=== PATIENT | female | born 1975 | race Caucasian/White ===

== ENCOUNTER 2016-10-04 01:45 | Emergency (ER) | payer MEDICAID ==
[~2016-10-04] VITALS: Ht 162.6 cm; Wt 95.0 kg
[~2016-10-04 01:45] MED LIST: ALBU18HF INH; LEVE500T38 PO; NAPR500T3 PO; NORT10CA PO; POTA10TA11 PO; POTA10TA31 PO; TIOT18CA INH; TOPI200T6 PO
[2016-10-04] MEDS ORDERED: LORazepam 2 MG/ML, 1ML IVPush ONE (03:30)
[2016-10-04] MEDS ORDERED: SODIUM CHLORIDE FLUSH 10ML SYR IVF ONE (03:30)
[2016-10-04 04:11] LABS: HEMOGLOBIN 11.3 g/dL (11.7-16.4)
[2016-10-04 04:27] LABS: BLOOD UREA NITROGEN 5 mg/dL (7-18)
[2016-10-04 04:33] LABS: ASPARTATE AMINO TRANSFERASE 25 U/L (15-37)
[2016-10-04 04:35] LABS: ACETAMINOPHEN < 2 mcg/mL (10-30); IS PT STATUS REG ER OR PRE ER? YES
[2016-10-04 04:46] LABS: DIFF TOTAL CELLS COUNTED 100 CELL DIFF
[2016-10-04 04:47] LABS: VERIFY COUNTS? YES
[2016-10-04 04:48] LABS: ANISOCYTOSIS 1+; HYPOCHROMIA 1+; OVALOCYTES 1+; POIKILOCYTOSIS 1+
[2016-10-04 04:49] LABS: PATH.CAST-FLAG NOT PRESENT; SPERM-FLAG NOT PRESENT; SRC-FLAG NOT PRESENT; XTAL-FLAG NOT PRESENT; YLC-FLAG NOT PRESENT
[2016-10-04] MEDS ORDERED: LEVOFLOXACIN/PMX 750MG/150ML 150 ML IV ONE (05:00)
[2016-10-04] MEDS ORDERED: LEVOFLOXACIN/PMX 750MG/150ML 150 ML ONE (05:05)
[2016-10-04 06:45] VITALS: BP 131/74
== END 2016-10-04 06:48 | disposition home or self-care (01) ==
LOC: ED 06:45
DX: J15.9 Unspecified bacterial pneumonia (principal); G40.909 Epilepsy, unspecified, not intractable, without status epilepticus
CPT/HCPCS: 36415; 70450; 71010; 80053; 80307; 80329; 81001; 84484; 85025; 85610; 85730; 87086; 93005; 96365; 96366; 99285; J1956; 87147; G0480

== ENCOUNTER 2016-10-10 22:30 | Inpatient (IN) | payer MEDICAID ==
[~2016-10-10] VITALS: Ht 162.6 cm; Wt 102.0 kg
[2016-10-10 23:13] LABS: HEMOGLOBIN 12.4 g/dL (11.7-16.4)
[2016-10-10 23:19] LABS: DAU SCREEN DISCLAIMER
[2016-10-10 23:22] LABS: BLOOD UREA NITROGEN 5 mg/dL (7-18)
[2016-10-10 23:31] LABS: ACETAMINOPHEN < 2 mcg/mL (10-30)
[2016-10-10] MEDS ORDERED: LORazepam 2 MG/ML, 1ML ONE (23:48)
[2016-10-11] MEDS ORDERED: LORazepam 2 MG/ML, 1ML IVPush ONE
[2016-10-11] MEDS ORDERED: SERT50TA PO (02:32)
[2016-10-11] MEDS ORDERED: DOCUSATE 100 MG CAPSULE PO PRN (04:00)
[2016-10-11] MEDS ORDERED: BISACODYL 10 MG SUPP PR PRN (04:00)
[2016-10-11] MEDS ORDERED: POTASSIUM CHLORIDE 20 MEQ TAB.ER.PRT PO ONE (04:00)
[2016-10-11] MEDS ORDERED: ONDANSETRON ODT 4 MG PO PRN (04:00)
[2016-10-11] MEDS ORDERED: ALBUTEROL SULFATE 2.5 MG/3 ML HHN PRN (04:00)
[2016-10-11] MEDS ORDERED: POLYETHYLENE GLYCOL 17 GM PACKET PO PRN (04:00)
[2016-10-11] MEDS ORDERED: ACETAMINOPHEN 325 MG TABLET PO PRN (04:00)
[2016-10-11] MEDS ORDERED: POTASSIUM CHLORIDE 20 MEQ TAB.ER.PRT ONE (05:38)
[2016-10-11] MEDS ORDERED: NORTRIPTYLINE MC SCH (09:30)
[2016-10-11] MEDS ORDERED: IPRATROPIUM 0.5 MG/2.5 ML INHA HHN PRN (09:30)
[2016-10-11 09:33] VITALS: BP 92/52
[2016-10-11] MEDS: SERTRALINE 50MG TABLET PO SCH (10:19)
[2016-10-11] MEDS: THIAMINE 100MG TABLET PO SCH (10:19)
[2016-10-11] MEDS: TOPIRAMATE 100 MG TABLET PO SCH ×2 (10:20→20:29)
[2016-10-11] MEDS: FOLIC ACID 1 MG TABLET PO SCH (10:20)
[2016-10-11] MEDS ORDERED: NARATRIPTAN HOMEMEDPO PRN (11:30)
[2016-10-11] MEDS: LORazepam 2 MG/ML, 1ML IVPush PRN ×3 (12:22→23:48)
[2016-10-11] MEDS ORDERED: LEVETIRACETAM 1,000 MG in SODIUM CHLORIDE 0.9% 100 ML IV SCH (14:00)
[2016-10-11] MEDS: CEFTRIAXONE PMX 1GM/50ML 50 ML IV SCH (14:40)
[2016-10-11] MEDS ORDERED: GADOBUTROL 10 MMOL/10 ML PFS ONE (14:53)
[2016-10-11 15:56] VITALS: BP 97/57
[2016-10-11] MEDS: DOXYCYCLINE 100 MG in DEXTROSE 5% 250 ML IV SCH (17:13)
[2016-10-11 19:13] VITALS: BP 89/55
[2016-10-11 19:13] LABS: PATH.CAST-FLAG NOT PRESENT; SPERM-FLAG NOT PRESENT; SRC-FLAG NOT PRESENT; XTAL-FLAG NOT PRESENT; YLC-FLAG NOT PRESENT
[2016-10-11] MEDS: LEVETIRACETAM 2000 MG HOMEMEDPO SCH (20:30)
[2016-10-12 02:28] VITALS: BP 122/82
[2016-10-12] MEDS: LORazepam 2 MG/ML, 1ML IVPush PRN ×2 (02:32→22:44)
[2016-10-12] MEDS: CEFTRIAXONE PMX 1GM/50ML 50 ML IV SCH ×2 (02:48→15:32)
[2016-10-12] MEDS: DOXYCYCLINE 100 MG in DEXTROSE 5% 250 ML IV SCH ×2 (04:09→17:05)
[2016-10-12 05:45] LABS: HEMOGLOBIN 10.8 g/dL (11.7-16.4)
[2016-10-12 05:52] LABS: ASPARTATE AMINO TRANSFERASE 7 U/L (15-37); BLOOD UREA NITROGEN 10 mg/dL (7-18)
[2016-10-12 07:05] VITALS: BP 110/73
[2016-10-12] MEDS: FOLIC ACID 1 MG TABLET PO SCH (09:50)
[2016-10-12] MEDS: THIAMINE 100MG TABLET PO SCH (09:50)
[2016-10-12] MEDS: SERTRALINE 50MG TABLET PO SCH (09:50)
[2016-10-12] MEDS: LEVETIRACETAM 2000 MG HOMEMEDPO SCH ×2 (09:52→20:48)
[2016-10-12] MEDS: TOPIRAMATE 100 MG TABLET PO SCH ×2 (09:52→20:47)
[2016-10-12] MEDS: NAPROXEN 500 MG TABLET PO PRN ×2 (12:54→20:48)
[2016-10-12 13:40] VITALS: BP 96/53
[2016-10-12 19:40] VITALS: BP 88/56
[2016-10-12 21:18] VITALS: BP 106/65
[2016-10-13 02:43] VITALS: BP 85/54
[2016-10-13] MEDS: CEFTRIAXONE PMX 1GM/50ML 50 ML IV SCH (03:02)
[2016-10-13 04:32] VITALS: BP 97/61
[2016-10-13] MEDS: DOXYCYCLINE 100 MG in DEXTROSE 5% 250 ML IV SCH (04:35)
[2016-10-13 07:27] VITALS: BP 100/68
[2016-10-13] MEDS ORDERED: NORTRIPTYLINE 10 MG CAPSULE PO SCH (09:00)
[2016-10-13] MEDS: TOPIRAMATE 100 MG TABLET PO SCH (09:38)
[2016-10-13] MEDS: FOLIC ACID 1 MG TABLET PO SCH (09:38)
[2016-10-13] MEDS: SERTRALINE 50MG TABLET PO SCH (09:39)
[2016-10-13] MEDS: THIAMINE 100MG TABLET PO SCH (09:39)
[2016-10-13] MEDS: LEVETIRACETAM 2000 MG HOMEMEDPO SCH (09:40)
[2016-10-13] MEDS: NAPROXEN 500 MG TABLET PO PRN (13:22)
[2016-10-13 13:45] VITALS: BP 97/62
[2016-10-13] MEDS ORDERED: LEVETIRACETAM HOMEMEDPO (14:40)
== END 2016-10-13 17:47 | disposition home or self-care (01) | DRG 871 ==
LOC: ED 23:59 → EDIP 10-11 02:59 → 3NE 10-11 09:05 → OBSVTOIN 10-11 16:32
PROVIDERS: ADMIT Internal Medicine; ATTEND Internal Medicine
PROC: 0T9B70Z Drainage of Bladder with Drainage Device, Via Natural or Artificial Opening (ICD-10-PCS; principal; 2016-10-11)
DX: A41.9 Sepsis, unspecified organism (principal); J18.9 Pneumonia, unspecified organism; E43 Unspecified severe protein-calorie malnutrition; R45.851 Suicidal ideations; N39.0 Urinary tract infection, site not specified; E87.1 Hypo-osmolality and hyponatremia; J44.0 Chronic obstructive pulmonary disease with (acute) lower respiratory infection; J44.9 Chronic obstructive pulmonary disease, unspecified; J45.909 Unspecified asthma, uncomplicated; G35 Multiple sclerosis; M41.9 Scoliosis, unspecified; M19.90 Unspecified osteoarthritis, unspecified site; F17.210 Nicotine dependence, cigarettes, uncomplicated; D47.3 Essential (hemorrhagic) thrombocythemia; D64.9 Anemia, unspecified; E87.6 Hypokalemia; G40.909 Epilepsy, unspecified, not intractable, without status epilepticus; B95.4 Other streptococcus as the cause of diseases classified elsewhere; Z68.38 Body mass index [BMI] 38.0-38.9, adult; Z98.51 Tubal ligation status; Z90.49 Acquired absence of other specified parts of digestive tract; Z90.721 Acquired absence of ovaries, unilateral; Z98.890 Other specified postprocedural states; Z88.8 Allergy status to other drugs, medicaments and biological substances; Z91.048 Other nonmedicinal substance allergy status; Z80.9 Family history of malignant neoplasm, unspecified; Z71.6 Tobacco abuse counseling
CPT/HCPCS: 36415; 70553; 71010; 80048; 80053; 80307; 80329; 81001; 82040; 82962; 83735; 84100; 84703; 85025; 87086; 93005; 95816; 99285; A9585; G0378; J0696; J7060; G0480; J2060

== ENCOUNTER 2019-08-03 16:31 | Emergency (ER) | payer MEDICAID ==
[~2019-08-03] VITALS: Ht 162.6 cm; Wt 81.8 kg
[~2019-08-03 16:31] MED LIST changes: -LEVE500T38 PO; +LEVE500T54 PO; +LEVETIRACETAM HOMEMEDPO; +NAPR-685 PO; -NAPR500T3 PO; +SERT50TA PO
--- NOTE | 2019-08-03 18:10 | NUR ---
PT TO ROOM FROM LOBBY
[2019-08-03] MEDS ORDERED: CYCLOBENZAPRINE 10 MG TABLET ONE (18:52)
[2019-08-03] MEDS ORDERED: CYCLOBENZAPRINE 10 MG TABLET PO ONE (19:00)
[2019-08-03 19:10] VITALS: BP 115/67
--- NOTE | 2019-08-03 20:07 | NUR ---
Patient given discharge instructions and Rx, they have confirmed that they understand the instructions. Patient ambulatory with steady gait.
== END 2019-08-03 20:08 | disposition home or self-care (01) ==
LOC: ED 20:01
DX: J20.8 Acute bronchitis due to other specified organisms (principal); G89.29 Other chronic pain; M54.5 Low back pain; Z76.0 Encounter for issue of repeat prescription; F17.210 Nicotine dependence, cigarettes, uncomplicated; J44.9 Chronic obstructive pulmonary disease, unspecified; Z88.8 Allergy status to other drugs, medicaments and biological substances; Z79.899 Other long term (current) drug therapy
CPT/HCPCS: 71046; 99283

== ENCOUNTER 2019-09-23 21:18 | Emergency (ER) | payer MEDICAID ==
[~2019-09-23] VITALS: Ht 162.6 cm; Wt 82.0 kg
[2019-09-23 21:27] VITALS: BP 125/86
--- NOTE | 2019-09-23 21:30 | NUR ---
PT BIB BY DIO. SHE CALLED 911 BECAUSE SHE THINKS SHE IS GOING TO HAVE A SEIZURE SOON. SHE SAYS "BEFORE I GET ONE I GET A NUMB FEELING AND MY FACE FEELS FUNNY. I FEEL THESE THINGS NOW". PT HASNT BEEN TAKING HER SZ MEDS SINCE JULY. SAYS HER LAST SZ WAS 3 DAYS AGO. ALSO SAYS SHE DRANK 3 32OZ BEERS TODAY. SZ PRECAUTIONS IN PLACE. BLANKET PROVIDED
--- NOTE | 2019-09-23 21:59 | NUR ---
FINGER STICK BLOOD GLUCOSE LEVEL 88
--- NOTE | 2019-09-23 22:08 | NUR ---
PT AMBULATED TO BATHROOM
[2019-09-23 22:17] LABS: BASOPHILS # (AUTO) 0.02 x10^3/uL (0-0.1); BASOPHILS % (AUTO) 0 % (0-1); EOSINOPHILS # (AUTO) 0.23 x10^3/uL (0-0.4); EOSINOPHILS % (AUTO) 3 % (1-7); LYMPHOCYTES # (AUTO) 1.88 x10^3/uL (1-3.4); LYMPHOCYTES % (AUTO) 27 % (22-44); MD NO; MEAN CORPUSCULAR HGB CONC 33.3 g/dL (32.4-35.8); MEAN PLATELET VOLUME 7.7 fL (7.4-10.4); MONOCYTES % (AUTO) 4 % (2-9); NEUTROPHILS # (AUTO) 4.53 x10^3/uL (1.8-6.8); NEUTROPHILS % (AUTO) 65 % (42-75); PLATELET COUNT 261 x10^3/uL (130-400); RED BLOOD COUNT 4.66 x10^6/uL (3.82-5.3)
[2019-09-23 22:25] LABS: ALBUMIN 3.8 g/dL (3.4-5.0); ANION GAP 7 mmol/L (5-15); CHLORIDE 112 mmol/L (98-107)
[2019-09-23 22:29] LABS: ALANINE AMINOTRANSFERASE 33 U/L (12-78); ALKALINE PHOSPHATASE 72 U/L (45-117); BILIRUBIN,TOTAL 0.2 mg/dL (0.2-1.0); CREATININE 0.72 mg/dL (0.55-1.02); TOTAL PROTEIN 7.2 g/dL (6.4-8.2)
--- NOTE | 2019-09-23 23:20 | NUR ---
PT ESCORTED OUT. PT AMBULATED WITH A STEADY GAIT. GIVEN TAXI VOUCHER
== END 2019-09-23 23:21 | disposition home or self-care (01) ==
LOC: ED 23:00
DX: F10.10 Alcohol abuse, uncomplicated (principal); F17.200 Nicotine dependence, unspecified, uncomplicated; G40.909 Epilepsy, unspecified, not intractable, without status epilepticus; Y90.0 Blood alcohol level of less than 20 mg/100 ml
CPT/HCPCS: 80053; 80307; 82962; 85025; 93005; 99284

== ENCOUNTER 2020-02-27 11:52 | Emergency (ER) | payer MEDICAID ==
[~2020-02-27] VITALS: Ht 162.6 cm; Wt 74.4 kg
--- NOTE | 2020-02-27 12:27 | NUR ---
TASK RN: PT REPORTS MIGRAINE ALEXIS X2 DAYS +N/V/D. PLACED VITAL SIGNS MONITORS, AND CALL LIGTH WITHIN REACH.
[2020-02-27] MEDS ORDERED: OXCA300T19 PO (12:30)
[2020-02-27] MEDS ORDERED: KETOROLAC 30 MG/1 ML IVPush ONE (12:30)
[2020-02-27] MEDS ORDERED: ONDANSETRON 2MG/ML, 2ML IVPush ONE (12:30)
[2020-02-27] MEDS ORDERED: SODIUM CHLORIDE 0.9% 1,000ML IVBOLUS ONE (12:30)
[2020-02-27] MEDS ORDERED: ONDANSETRON 2MG/ML, 2ML ONE (12:38)
[2020-02-27] MEDS ORDERED: KETOROLAC 30 MG/1 ML ONE (12:38)
--- NOTE | 2020-02-27 12:46 | NUR ---
ISOLATION CART PLACED.
[2020-02-27 12:54] LABS: BASOPHILS % (AUTO) 0 % (0-1); EOSINOPHILS # (AUTO) 0.01 x10^3/uL (0-0.4); EOSINOPHILS % (AUTO) 0 % (1-7); LYMPHOCYTES % (AUTO) 4 % (22-44); MD NO; MEAN CORPUSCULAR HEMOGLOBIN 32.5 pg (27.0-34.8); MEAN CORPUSCULAR HGB CONC 33.5 g/dL (32.4-35.8); MEAN PLATELET VOLUME 7.5 fL (7.4-10.4); MONOCYTES # (AUTO) 0.37 x10^3/uL (0.2-0.8); MONOCYTES % (AUTO) 5 % (2-9); NEUTROPHILS # (AUTO) 6.34 x10^3/uL (1.8-6.8); NEUTROPHILS % (AUTO) 90 % (42-75); PLATELET COUNT 146 x10^3/uL (130-400); RED BLOOD COUNT 4.34 x10^6/uL (3.82-5.3); RED CELL DISTRIBUTION WIDTH 13.3 % (9.6-15.2)
[2020-02-27 13:04] LABS: ALBUMIN 3.3 g/dL (3.4-5.0); ANION GAP 6 mmol/L (5-15); CALCIUM 8.6 mg/dL (8.5-10.1); CHLORIDE 106 mmol/L (98-107); CREATININE 0.81 mg/dL (0.55-1.02)
--- NOTE | 2020-02-27 13:16 | NUR ---
REPORT TAKEN FROM SANDRA SHULTZ ATTEMPTED X 2 BY TASK RN WITHOUT SUCCESS. SAFIA TSANG NOTIFIED. IV MEDS CHANGED TO ALTERNATIVE ROUTES, PER MD NO IV NEEDED.
[2020-02-27] MEDS ORDERED: ONDANSETRON ODT 4 MG ONE (13:18)
[2020-02-27] MEDS ORDERED: ONDANSETRON ODT 4 MG PO ONE (14:00)
[2020-02-27] MEDS ORDERED: KETOROLAC 30 MG/1 ML IM ONE (14:00)
[2020-02-27] MEDS ORDERED: HYDROcodone/APAP 5/325 TABLET PO ONE (14:00)
--- NOTE | 2020-02-27 14:00 | NUR ---
verbal order received from RIYA Rasmussen to change toradol order from IV to IM route, 30 mg. Zofran order changed from IV route to ODT, 4mg. NS bolus order cancelled. pt medicated per emar, tolerated well.
[2020-02-27] MEDS ORDERED: HYDROcodone/APAP 5/325 TABLET ONE (14:08)
[2020-02-27 14:11] VITALS: BP 101/58
--- NOTE | 2020-02-27 14:18 | NUR ---
pt medicated per emar, tolearted well. no n/v. pt is a&ox4, resps even and unlabored, neuro intact. nsr on secured entrance monitor with no ectopy noted. pt to be discharged.
== END 2020-02-27 14:20 | disposition home or self-care (01) ==
LOC: ED 13:08
DX: J44.1 Chronic obstructive pulmonary disease with (acute) exacerbation (principal); Z20.828 Contact with and (suspected) exposure to other viral communicable diseases; G43.709 Chronic migraine without aura, not intractable, without status migrainosus; B34.9 Viral infection, unspecified; R11.2 Nausea with vomiting, unspecified; I51.7 Cardiomegaly; R00.0 Tachycardia, unspecified; F17.210 Nicotine dependence, cigarettes, uncomplicated
CPT/HCPCS: 36415; 71045; 80048; 82040; 83605; 85025; 87635; 93005; 96372; 99285; J1885; Q0162

== ENCOUNTER 2020-04-01 10:13 | Inpatient (IN) | payer MEDICAID ==
[~2020-04-01] VITALS: Ht 162.6 cm; Wt 93.7 kg
[~2020-04-01 10:13] MED LIST changes: +OXCA300T19 PO
[2020-04-01] MEDS ORDERED: ACETAMINOPHEN 500 MG TABLET ONE (10:44)
[2020-04-01] MEDS ORDERED: ACETAMINOPHEN 500 MG TABLET PO ONE (11:00)
[2020-04-01 11:40] LABS: ANION GAP 6 mmol/L (5-15); CALCIUM 8.4 mg/dL (8.5-10.1); CHLORIDE 118 mmol/L (98-107); CREATININE 0.59 mg/dL (0.55-1.02)
[2020-04-01 12:52] LABS: BASOPHILS # (AUTO) 0.03 x10^3/uL (0-0.1); BASOPHILS % (AUTO) 0 % (0-1); EOSINOPHILS # (AUTO) 0.15 x10^3/uL (0-0.4); EOSINOPHILS % (AUTO) 2 % (1-7); LYMPHOCYTES # (AUTO) 1.46 x10^3/uL (1-3.4); LYMPHOCYTES % (AUTO) 15 % (22-44); MD NO; MEAN CORPUSCULAR HEMOGLOBIN 32.4 pg (27.0-34.8); MEAN CORPUSCULAR HGB CONC 33.1 g/dL (32.4-35.8); MEAN CORPUSCULAR VOLUME 97.7 fL (80-100); MEAN PLATELET VOLUME 7.4 fL (7.4-10.4); MONOCYTES # (AUTO) 0.28 x10^3/uL (0.2-0.8); MONOCYTES % (AUTO) 3 % (2-9); NEUTROPHILS # (AUTO) 7.73 x10^3/uL (1.8-6.8); NEUTROPHILS % (AUTO) 80 % (42-75); PLATELET COUNT 317 x10^3/uL (130-400); RED BLOOD COUNT 4.51 x10^6/uL (3.82-5.3); RED CELL DISTRIBUTION WIDTH 14.1 % (9.6-15.2)
[2020-04-01 12:53] LABS: INTERNATIONAL NORMALIZED RATIO 1.03 (0.93-1.1); PROTHROMBIN TIME 10.6 Seconds (9.6-11.5)
--- NOTE | 2020-04-01 13:30 | NUR ---
MULTIPLE ATTMEPTS AT IV WITH NO SUCCESS. PROVIDER NOTIFIED.
[2020-04-01] MEDS ORDERED: NAPROXEN 500 MG TABLET PO PRN (15:30)
[2020-04-01] MEDS ORDERED: ACETAMINOPHEN 325 MG TABLET PO PRN (15:30)
[2020-04-01] MEDS ORDERED: BISACODYL 10 MG SUPP PR PRN (15:30)
[2020-04-01] MEDS ORDERED: NORTRIPTYLINE 10 MG CAPSULE PO PRN (15:30)
[2020-04-01] MEDS ORDERED: ALBUTEROL HFA 90 MCG/SPRAY INH PRN (15:30)
[2020-04-01] MEDS ORDERED: POLYETHYLENE GLYCOL 17 GM PACKET PO PRN (15:30)
[2020-04-01] MEDS ORDERED: ONDANSETRON 2MG/ML, 2ML IVPush PRN (15:30)
[2020-04-01] MEDS ORDERED: DOCUSATE 100 MG CAPSULE PO PRN (15:30)
[2020-04-01] MEDS: SODIUM CHLORIDE 0.9% 1,000 ML IV SCH (17:38)
[2020-04-01 19:50] VITALS: BP 144/83
[2020-04-01] MEDS: TOPIRAMATE 100 MG TABLET PO SCH (20:02)
[2020-04-01] MEDS: morphine SULFATE 10 MG/ML, 1ML IVPush PRN ×2 (20:02→20:30)
[2020-04-01] MEDS: KETOROLAC 30 MG/1 ML IV PRN (20:02)
[2020-04-01] MEDS: POTASSIUM CHLORIDE 10 MEQ TABLET.ER PO SCH (20:02)
[2020-04-01] MEDS: OXCARBAZEPINE 300MG TABLET PO SCH (20:03)
[2020-04-01] MEDS: HYDROcodone/APAP 5/325 TABLET PO PRN (21:44)
[2020-04-02 01:38] VITALS: BP 119/81
[2020-04-02] MEDS: morphine SULFATE 10 MG/ML, 1ML IVPush PRN ×3 (01:46→09:48)
[2020-04-02] MEDS: KETOROLAC 30 MG/1 ML IV PRN ×2 (06:06→19:27)
[2020-04-02] MEDS: SODIUM CHLORIDE 0.9% 1,000 ML IV SCH ×2 (06:06→23:29)
[2020-04-02 06:42] LABS: BASOPHILS # (AUTO) 0.03 x10^3/uL (0-0.1); BASOPHILS % (AUTO) 1 % (0-1); EOSINOPHILS # (AUTO) 0.16 x10^3/uL (0-0.4); EOSINOPHILS % (AUTO) 3 % (1-7); LYMPHOCYTES % (AUTO) 38 % (22-44); MD NO; MEAN CORPUSCULAR HEMOGLOBIN 32.3 pg (27.0-34.8); MEAN CORPUSCULAR HGB CONC 33.1 g/dL (32.4-35.8); MEAN CORPUSCULAR VOLUME 97.4 fL (80-100); MEAN PLATELET VOLUME 7.2 fL (7.4-10.4); MONOCYTES # (AUTO) 0.28 x10^3/uL (0.2-0.8); MONOCYTES % (AUTO) 6 % (2-9); NEUTROPHILS # (AUTO) 2.48 x10^3/uL (1.8-6.8); NEUTROPHILS % (AUTO) 52 % (42-75); PLATELET COUNT 246 x10^3/uL (130-400); RED BLOOD COUNT 3.97 x10^6/uL (3.82-5.3); RED CELL DISTRIBUTION WIDTH 14.1 % (9.6-15.2)
[2020-04-02 06:51] LABS: ALANINE AMINOTRANSFERASE 18 U/L (12-78); ALBUMIN 2.9 g/dL (3.4-5.0); ANION GAP 7 mmol/L (5-15); CALCIUM 7.7 mg/dL (8.5-10.1); CHLORIDE 117 mmol/L (98-107); CREATININE 0.65 mg/dL (0.55-1.02)
[2020-04-02 07:01] LABS: ALKALINE PHOSPHATASE 61 U/L (45-117); BILIRUBIN,TOTAL 0.3 mg/dL (0.2-1.0); TOTAL PROTEIN 5.6 g/dL (6.4-8.2)
[2020-04-02 07:06] VITALS: BP 99/62
[2020-04-02] MEDS: SERTRALINE 50MG TABLET PO SCH (09:15)
[2020-04-02] MEDS: OXCARBAZEPINE 300MG TABLET PO SCH ×2 (09:16→20:55)
[2020-04-02] MEDS: TOPIRAMATE 100 MG TABLET PO SCH ×2 (09:16→20:55)
[2020-04-02] MEDS: POTASSIUM CHLORIDE 10 MEQ TABLET.ER PO SCH ×2 (09:16→20:55)
[2020-04-02 10:05] VITALS: BP 113/76
[2020-04-02] MEDS: TIOTROPIUM BROMIDE 18 MCG/INH INH SCH (10:31)
[2020-04-02] MEDS: HYDROcodone/APAP 5/325 TABLET PO PRN ×3 (10:37→23:29)
[2020-04-02] MEDS ORDERED: CHLORHEXIDINE 15 ML UDC MM ONE (12:30)
[2020-04-02] MEDS ORDERED: MIDAZOLAM 1 MG/ML, 2ML ONE (12:46)
[2020-04-02] MEDS ORDERED: FENTANYL PF 250 MCG/5ML ONE (12:47)
[2020-04-02 12:54] VITALS: BP 105/71
[2020-04-02] MEDS ORDERED: MUPIROCIN OINT 2%, 22GM ONE (13:22)
[2020-04-02] MEDS ORDERED: LIDOCAINE 1%-EPI 1:100K, 20ML ONE (13:22)
[2020-04-02] MEDS ORDERED: BALANCED SALT OPHTH IRRIG SOLN 18ML ONE (13:22)
[2020-04-02] MEDS ORDERED: FENTANYL PF 100 MCG/2ML IV PRN (14:00)
[2020-04-02] MEDS ORDERED: OXYcodone 5 MG/5 ML ORAL.SOL UDC PO PRN (14:00)
[2020-04-02] MEDS ORDERED: ACETAMINOPHEN 325 MG TABLET PO PRN (14:00)
[2020-04-02] MEDS ORDERED: MEPERIDINE/PF 25MG/0.5ML IVPush PRN (14:00)
[2020-04-02] MEDS ORDERED: ONDANSETRON 2MG/ML, 2ML IVPush PRN (14:00)
[2020-04-02] MEDS ORDERED: DIAZEPAM 5 MG/ML, 2ML IVPush PRN (14:00)
[2020-04-02] MEDS ORDERED: DIPHENHYDRAMINE 50 MG/ML, 1ML IVPush PRN (14:00)
[2020-04-02] MEDS ORDERED: PROMETHAZINE 25 MG/ML, 1ML IVPush PRN (14:00)
[2020-04-02] MEDS ORDERED: LIDOCAINE 1%-EPI 1:100K, 20ML INFIL ONE (14:09)
[2020-04-02] MEDS ORDERED: HYDROmorphone 1 MG/ML, 1ML INJ ONE (15:06)
[2020-04-02] MEDS: HYDROmorphone 1 MG/ML, 1ML INJ IVPush PRN ×2 (15:08→15:15)
[2020-04-02 19:18] VITALS: BP 104/64
[2020-04-02] MEDS: CEFAZOLIN PMX 1GM/50ML 50 ML IV SCH (21:20)
[2020-04-02 23:35] VITALS: BP 103/57
[2020-04-03 03:27] VITALS: BP 103/64
[2020-04-03] MEDS: HYDROcodone/APAP 5/325 TABLET PO PRN ×5 (03:36→22:06)
[2020-04-03] MEDS: CEFAZOLIN PMX 1GM/50ML 50 ML IV SCH (05:29)
[2020-04-03 05:38] LABS: BASOPHILS # (AUTO) 0.03 x10^3/uL (0-0.1); BASOPHILS % (AUTO) 1 % (0-1); EOSINOPHILS # (AUTO) 0.07 x10^3/uL (0-0.4); EOSINOPHILS % (AUTO) 1 % (1-7); LYMPHOCYTES # (AUTO) 1.34 x10^3/uL (1-3.4); LYMPHOCYTES % (AUTO) 20 % (22-44); MD NO; MEAN CORPUSCULAR HGB CONC 33.9 g/dL (32.4-35.8); MEAN CORPUSCULAR VOLUME 97.4 fL (80-100); MEAN PLATELET VOLUME 7.3 fL (7.4-10.4); MONOCYTES % (AUTO) 6 % (2-9); NEUTROPHILS # (AUTO) 5.01 x10^3/uL (1.8-6.8); NEUTROPHILS % (AUTO) 73 % (42-75); PLATELET COUNT 242 x10^3/uL (130-400); RED BLOOD COUNT 3.71 x10^6/uL (3.82-5.3); RED CELL DISTRIBUTION WIDTH 14.1 % (9.6-15.2)
[2020-04-03 05:40] LABS: ANION GAP 7 mmol/L (5-15); CALCIUM 8.2 mg/dL (8.5-10.1); CHLORIDE 117 mmol/L (98-107)
[2020-04-03 05:42] LABS: CREATININE 0.69 mg/dL (0.55-1.02)
[2020-04-03 07:29] VITALS: BP 111/66
[2020-04-03] MEDS: POTASSIUM CHLORIDE 10 MEQ TABLET.ER PO SCH ×2 (08:32→21:18)
[2020-04-03] MEDS: TIOTROPIUM BROMIDE 18 MCG/INH INH SCH (08:32)
[2020-04-03] MEDS: OXCARBAZEPINE 300MG TABLET PO SCH ×2 (08:32→21:18)
[2020-04-03] MEDS: TOPIRAMATE 100 MG TABLET PO SCH ×2 (08:32→21:18)
[2020-04-03] MEDS: SERTRALINE 50MG TABLET PO SCH (08:32)
[2020-04-03] MEDS: KETOROLAC 30 MG/1 ML IV PRN ×3 (08:42→22:05)
[2020-04-03] MEDS: SODIUM CHLORIDE 0.9% 1,000 ML IV SCH (08:58)
[2020-04-03] MEDS: AMOXICILLIN/CLAV 875-125MG TABLET PO SCH ×2 (09:08→21:18)
[2020-04-03 13:25] VITALS: BP 105/70
[2020-04-03 19:02] VITALS: BP 125/79
[2020-04-04] MEDS: SODIUM CHLORIDE 0.9% 1,000 ML IV SCH ×2 (02:10→09:19)
[2020-04-04 03:51] VITALS: BP 113/66
[2020-04-04 04:49] LABS: BASOPHILS # (AUTO) 0.05 x10^3/uL (0-0.1); BASOPHILS % (AUTO) 1 % (0-1); EOSINOPHILS # (AUTO) 0.19 x10^3/uL (0-0.4); EOSINOPHILS % (AUTO) 4 % (1-7); LYMPHOCYTES % (AUTO) 30 % (22-44); MD NO; MEAN CORPUSCULAR HGB CONC 33.9 g/dL (32.4-35.8); MEAN CORPUSCULAR VOLUME 97.2 fL (80-100); MEAN PLATELET VOLUME 7.6 fL (7.4-10.4); MONOCYTES # (AUTO) 0.21 x10^3/uL (0.2-0.8); MONOCYTES % (AUTO) 4 % (2-9); NEUTROPHILS # (AUTO) 3.06 x10^3/uL (1.8-6.8); NEUTROPHILS % (AUTO) 61 % (42-75); PLATELET COUNT 230 x10^3/uL (130-400); RED BLOOD COUNT 3.58 x10^6/uL (3.82-5.3); RED CELL DISTRIBUTION WIDTH 14.1 % (9.6-15.2)
[2020-04-04 04:56] LABS: ANION GAP 5 mmol/L (5-15); CALCIUM 8.4 mg/dL (8.5-10.1); CHLORIDE 118 mmol/L (98-107); CREATININE 0.64 mg/dL (0.55-1.02)
[2020-04-04] MEDS: HYDROcodone/APAP 5/325 TABLET PO PRN ×4 (06:18→19:51)
[2020-04-04 09:15] VITALS: BP 118/72
[2020-04-04] MEDS: SERTRALINE 50MG TABLET PO SCH (09:17)
[2020-04-04] MEDS: OXCARBAZEPINE 300MG TABLET PO SCH ×2 (09:17→19:53)
[2020-04-04] MEDS: POTASSIUM CHLORIDE 10 MEQ TABLET.ER PO SCH ×2 (09:17→19:52)
[2020-04-04] MEDS: TIOTROPIUM BROMIDE 18 MCG/INH INH SCH (09:17)
[2020-04-04] MEDS: AMOXICILLIN/CLAV 875-125MG TABLET PO SCH ×2 (09:17→19:52)
[2020-04-04] MEDS: TOPIRAMATE 100 MG TABLET PO SCH ×2 (09:17→19:53)
[2020-04-04] MEDS: morphine SULFATE 10 MG/ML, 1ML IVPush PRN ×4 (12:24→23:14)
[2020-04-04 13:17] VITALS: BP 125/78
[2020-04-04 19:34] VITALS: BP 104/64
[2020-04-05 01:07] VITALS: BP 114/64
[2020-04-05] MEDS: HYDROcodone/APAP 5/325 TABLET PO PRN ×2 (01:11→08:29)
[2020-04-05] MEDS: morphine SULFATE 10 MG/ML, 1ML IVPush PRN ×5 (02:45→20:59)
[2020-04-05] MEDS: SODIUM CHLORIDE 0.9% 1,000 ML IV SCH ×2 (04:50→18:10)
[2020-04-05 07:36] VITALS: BP 135/90
[2020-04-05] MEDS: TOPIRAMATE 100 MG TABLET PO SCH ×2 (08:25→20:58)
[2020-04-05] MEDS: POTASSIUM CHLORIDE 10 MEQ TABLET.ER PO SCH ×2 (08:25→20:58)
[2020-04-05] MEDS: SERTRALINE 50MG TABLET PO SCH (08:25)
[2020-04-05] MEDS: AMOXICILLIN/CLAV 875-125MG TABLET PO SCH ×2 (08:25→20:58)
[2020-04-05] MEDS: OXCARBAZEPINE 300MG TABLET PO SCH ×2 (08:25→20:58)
[2020-04-05] MEDS: KETOROLAC 30 MG/1 ML IV PRN ×2 (08:26→16:28)
[2020-04-05] MEDS: TIOTROPIUM BROMIDE 18 MCG/INH INH SCH (08:36)
[2020-04-05] MEDS ORDERED: CHLORHEXIDINE 15 ML UDC ONE (09:57)
[2020-04-05] MEDS ORDERED: BALANCED SALT OPHTH IRRIG SOLN 18ML ONE (10:43)
[2020-04-05] MEDS ORDERED: MUPIROCIN OINT 2%, 22GM ONE (10:44)
[2020-04-05] MEDS ORDERED: LIDOCAINE 1%-EPI 1:100K, 20ML ONE (10:44)
[2020-04-05] MEDS ORDERED: CHLORHEXIDINE 15 ML UDC MM ONE (11:00)
[2020-04-05] MEDS ORDERED: PROPOFOL 10 MG/ML, 20ML ONE (11:01)
[2020-04-05] MEDS ORDERED: SUCCINYLCHOLINE 20 MG/ML, 10ML ONE (11:01)
[2020-04-05] MEDS ORDERED: FENTANYL PF 100 MCG/2ML ONE (11:01)
[2020-04-05] MEDS ORDERED: LIDOCAINE-MPF 2% ,5ML ONE (11:01)
[2020-04-05] MEDS ORDERED: CEFAZOLIN 1,000 MG ONE ×2 (11:24)
[2020-04-05] MEDS ORDERED: DEXAMETHASONE 4 MG/ML, 1ML ONE ×3 (11:27)
[2020-04-05] MEDS ORDERED: GLYCOPYRROLATE 0.2MG/1ML, 5ML ONE (11:28)
[2020-04-05] MEDS ORDERED: BACITRACIN 50,000 UNIT ONE (11:48)
[2020-04-05] MEDS ORDERED: ONDANSETRON 2MG/ML, 2ML IVPush PRN (12:00)
[2020-04-05] MEDS ORDERED: FENTANYL PF 100 MCG/2ML IV PRN (12:00)
[2020-04-05] MEDS ORDERED: OXYcodone 5 MG/5 ML ORAL.SOL UDC PO PRN (12:00)
[2020-04-05] MEDS ORDERED: HYDROmorphone 1 MG/ML, 1ML INJ ONE (12:32)
[2020-04-05] MEDS ORDERED: OXYcodone 5 MG/5 ML ORAL.SOL UDC ONE (12:41)
[2020-04-05 13:16] VITALS: BP 130/80
[2020-04-05 19:00] VITALS: BP 118/76
[2020-04-05 21:09] VITALS: BP 122/78
[2020-04-06] MEDS: HYDROcodone/APAP 5/325 TABLET PO PRN ×4 (00:24→19:55)
[2020-04-06] MEDS: KETOROLAC 30 MG/1 ML IV PRN ×3 (00:24→14:46)
[2020-04-06 03:50] VITALS: BP 97/60
[2020-04-06] MEDS: morphine SULFATE 10 MG/ML, 1ML IVPush PRN ×4 (05:12→21:18)
[2020-04-06 08:00] VITALS: BP 126/75
[2020-04-06] MEDS: TOPIRAMATE 100 MG TABLET PO SCH ×2 (08:58→19:54)
[2020-04-06] MEDS: SERTRALINE 50MG TABLET PO SCH (08:58)
[2020-04-06] MEDS: OXCARBAZEPINE 300MG TABLET PO SCH ×2 (08:58→19:54)
[2020-04-06] MEDS: POTASSIUM CHLORIDE 10 MEQ TABLET.ER PO SCH ×2 (08:58→19:54)
[2020-04-06] MEDS: TIOTROPIUM BROMIDE 18 MCG/INH INH SCH (08:59)
[2020-04-06] MEDS: AMOXICILLIN/CLAV 875-125MG TABLET PO SCH ×2 (08:59→19:54)
[2020-04-06] MEDS: SODIUM CHLORIDE 0.9% 1,000 ML IV SCH ×2 (10:00→20:50)
[2020-04-06 13:57] VITALS: BP 107/69
[2020-04-06 20:57] VITALS: BP 121/80
[2020-04-07] MEDS: HYDROcodone/APAP 5/325 TABLET PO PRN ×4 (00:17→12:38)
[2020-04-07 01:43] VITALS: BP 103/66
[2020-04-07] MEDS: SERTRALINE 50MG TABLET PO SCH (08:23)
[2020-04-07] MEDS: OXCARBAZEPINE 300MG TABLET PO SCH (08:23)
[2020-04-07] MEDS: AMOXICILLIN/CLAV 875-125MG TABLET PO SCH (08:23)
[2020-04-07] MEDS: TOPIRAMATE 100 MG TABLET PO SCH (08:23)
[2020-04-07] MEDS: POTASSIUM CHLORIDE 10 MEQ TABLET.ER PO SCH (08:23)
[2020-04-07 08:30] VITALS: BP 139/81
[2020-04-07] MEDS: SODIUM CHLORIDE 0.9% 1,000 ML IV SCH (10:10)
[2020-04-07] MEDS: morphine SULFATE 10 MG/ML, 1ML IVPush PRN ×2 (10:29→15:27)
[2020-04-07] MEDS: TIOTROPIUM BROMIDE 18 MCG/INH INH SCH (12:38)
[2020-04-07 15:18] VITALS: BP 126/81
[2020-04-07] MEDS ORDERED: AMOX1TAB64 PO (16:13)
== END 2020-04-07 17:15 | disposition home or self-care (01) | DRG 73 ==
LOC: ED 11:18 → EDIP 13:16 → 3N 14:20 → 4NE 04-02 09:57
PROVIDERS: ADMIT Internal Medicine; ATTEND Internal Medicine
PROC: 0NSQ04Z Reposition Left Orbit with Internal Fixation Device, Open Approach (ICD-10-PCS; principal; 2020-04-02 13:00)
PROC: 08W Eye, Revision (ICD-10-PCS; 2020-04-05)
DX: S02.32XA Fracture of orbital floor, left side, initial encounter for closed fracture (principal); F17.200 Nicotine dependence, unspecified, uncomplicated; G35 Multiple sclerosis; G40.909 Epilepsy, unspecified, not intractable, without status epilepticus; J44.9 Chronic obstructive pulmonary disease, unspecified; M41.9 Scoliosis, unspecified; Z59.0 Homelessness; Z80.9 Family history of malignant neoplasm, unspecified; Z88.8 Allergy status to other drugs, medicaments and biological substances; Z98.2 Presence of cerebrospinal fluid drainage device; W18.39XA Other fall on same level, initial encounter; Y93.89 Activity, other specified; Y92.89 Other specified places as the place of occurrence of the external cause; Y99.8 Other external cause status; Z20.828 Contact with and (suspected) exposure to other viral communicable diseases
CPT/HCPCS: 36415; 70450; 70486; 80048; 80053; 82607; 83735; 84100; 84439; 84443; 84703; 85025; 85610; 85730; 87635; 93005; 99285; C1713; G0378; J0690; J1100; J1170; J1885; J2250; J2704; J3010; J3490; C1781; J0330; J2270; J7030

== ENCOUNTER 2020-04-09 09:50 | Emergency (ER) | payer MEDICAID ==
[~2020-04-09] VITALS: Ht 162.6 cm; Wt 78.9 kg
[~2020-04-09 09:50] MED LIST changes: +AMOX1TAB64 PO
--- NOTE | 2020-04-09 10:28 | NUR ---
TASK RN NOTE: PT AMBULATED TO ED TODAY FOR RECHECK OF LT EYE. GLF LAST WEEK RESULTING IN RT SIDED FACIAL FRACTURE, WHICH WERE REPAIRED. PERIORBITAL EDEMA EVIDENT. PT C/O WORSENING BLURRED VISION AND IRRITATION.
[2020-04-09] MEDS ORDERED: SODIUM CHLORIDE FLUSH 10ML SYR IVF ONE (10:30)
--- NOTE | 2020-04-09 11:01 | NUR ---
PT UPRIGHT ON GURNEY AWAKE & CALM, NAD, COMFORT MEASURES PROVIDED, CALL LIGHT WITHIN REACH. UNABLE TO OBTAIN PIV ACCESS, WAITING OTHER STAFF TO INSERT PIV VIA US.
[2020-04-09 11:36] LABS: CHLORIDE 113 mmol/L (98-107)
[2020-04-09 11:38] LABS: MD YES; MEAN CORPUSCULAR HEMOGLOBIN 32.6 pg (27.0-34.8); MEAN CORPUSCULAR HGB CONC 33.8 g/dL (32.4-35.8); MEAN CORPUSCULAR VOLUME 96.5 fL (80-100); MEAN PLATELET VOLUME 7.4 fL (7.4-10.4); PLATELET COUNT 275 x10^3/uL (130-400); RED BLOOD COUNT 4.28 x10^6/uL (3.82-5.3); RED CELL DISTRIBUTION WIDTH 14.1 % (9.6-15.2)
[2020-04-09 11:41] LABS: ALBUMIN 3.6 g/dL (3.4-5.0); ANION GAP 7 mmol/L (5-15); CALCIUM 8.8 mg/dL (8.5-10.1); CREATININE 0.69 mg/dL (0.55-1.02)
--- NOTE | 2020-04-09 12:02 | NUR ---
PT TO CT.
--- NOTE | 2020-04-09 12:11 | NUR ---
PT RETURNED FROM CT. SITTING COMFORTABLY ON GURNEY, ABLE TO DOZE OFF. CALL LIGHT WITHIN REACH AND COMFORT MEASURES PROVIDED. NO ADDITIONAL NEEDS AT THIS TIME.
[2020-04-09] MEDS ORDERED: OMNIPAQUE 350 MG/ML, 75ML BOTTLE ONE (12:25)
[2020-04-09 12:31] LABS: BAND#(MANUAL) 0.06 x10^3/uL; BANDS%(MANUAL) 1 % (0-7); BASOS#(MANUAL) 0.06 x10^3/uL (0-0.1); BASOS% (MANUAL) 1 % (0-1); EOS#(MANUAL) 0.17 x10^3/uL (0.0-0.4); EOS% (MANUAL) 3 % (1-7); LYMPH#(MANUAL) 1.34 x10^3/uL (1-3.4); LYMPHS% (MANUAL) 24 % (22-44); MONOS#(MANUAL) 0.22 x10^3/uL (0.3-2.7); MONOS% (MANUAL) 4 % (2-9); SEG#(MANUAL) 3.75 x10^3/uL (1.8-6.8); SEGS% (MANUAL) 67 % (42-75)
[2020-04-09 12:32] LABS: <PLATELET ESTIMATE> ADEQUATE; <PLT MORPHOLOGY> NORMAL PLT MORPH; <RBC MORPHOLOGY> NORMAL
--- NOTE | 2020-04-09 12:33 | NUR ---
TASK RN NOTE: PT RECLINED IN BED WATCHING TELEVISION. NAD NOTED AT THIS TIME. AWAITING CT RESULTS.
[2020-04-09 13:02] VITALS: BP 129/88
--- NOTE | 2020-04-09 13:03 | NUR ---
PT SUPINE ON GURNEY WATCHING TV. ABLE TO DOZE OFF. PT DENIES ANY NEEDS AT THIS TIME. CALL LIGHT WITHIN REACH AND COMFORT MEASURES PROVIDED.
--- NOTE | 2020-04-09 13:09 | NUR ---
Patient given discharge instructions and they have confirmed that they understand the instructions. Patient ambulatory with steady gait.
== END 2020-04-09 13:34 | disposition home or self-care (01) ==
LOC: ED 11:21
DX: S02.32XA Fracture of orbital floor, left side, initial encounter for closed fracture (principal); J45.909 Unspecified asthma, uncomplicated; G40.909 Epilepsy, unspecified, not intractable, without status epilepticus; R42 Dizziness and giddiness; R11.0 Nausea; X58.XXXA Exposure to other specified factors, initial encounter; Y93.89 Activity, other specified; Y92.89 Other specified places as the place of occurrence of the external cause; Y99.8 Other external cause status
CPT/HCPCS: 36415; 70481; 80048; 82040; 85025; 93005; 99285; Q9967

== ENCOUNTER 2020-04-12 10:59 | Emergency (ER) | payer MEDICAID ==
[~2020-04-12] VITALS: Ht 162.6 cm; Wt 83.0 kg
--- NOTE | 2020-04-12 11:02 | NUR ---
44 Y/O FEMALE BIB AMBULANCE WITH C/O SEIZURE. PER PT "EARLIER TODAY I HAD A SEIZURE. I TAKE MY MEDICATIONS. I JUST MOVED HERE IN JULY. I DON'T HAVE A REGULAR DOCTOR YET. I'VE JUST HAD THE ER GIVE ME THE MEDS." PER REPORT PT STATED THEY WERE SLEEPING IN THE PARK LAST NIGHT AND SHE HAD A 10 MIN SEIZURE. ACCORDING TO REPORT HAD FULL BODY TWITCHING PT WAS STERNAL RUBBED AND WAS GCS 15 A&OX4. FSBG 79. PT HAS SUTURES ON LEFT CHECK FROM A PRIOR VISIT. PT ABLE TO SPEAK CLEARLY TO EDMD. PT PLACED ON CONT PULSE OX,NIBP,RAILROAD WHEELS AND AXLES INSPECTOR.
[2020-04-12 11:45] LABS: MEAN CORPUSCULAR HEMOGLOBIN 32.2 pg (27.0-34.8); MEAN CORPUSCULAR HGB CONC 32.9 g/dL (32.4-35.8); MEAN PLATELET VOLUME 6.8 fL (7.4-10.4); PLATELET COUNT 249 x10^3/uL (130-400); RED BLOOD COUNT 4.17 x10^6/uL (3.82-5.3); RED CELL DISTRIBUTION WIDTH 14.1 % (9.6-15.2)
[2020-04-12 11:52] LABS: ALBUMIN 3.2 g/dL (3.4-5.0); ANION GAP 8 mmol/L (5-15); CALCIUM 8.1 mg/dL (8.5-10.1); CHLORIDE 112 mmol/L (98-107); CREATININE 0.63 mg/dL (0.55-1.02)
[2020-04-12 11:59] LABS: BASOPHILS # (AUTO) 0.02 x10^3/uL (0-0.1); BASOPHILS % (AUTO) 1 % (0-1); EOSINOPHILS # (AUTO) 0.11 x10^3/uL (0-0.4); EOSINOPHILS % (AUTO) 3 % (1-7); LYMPHOCYTES # (AUTO) 1.16 x10^3/uL (1-3.4); LYMPHOCYTES % (AUTO) 32 % (22-44); MD SCAN; MONOCYTES # (AUTO) 0.21 x10^3/uL (0.2-0.8); MONOCYTES % (AUTO) 6 % (2-9); NEUTROPHILS # (AUTO) 2.16 x10^3/uL (1.8-6.8); NEUTROPHILS % (AUTO) 59 % (42-75)
--- NOTE | 2020-04-12 12:26 | NUR ---
pt resting on gurney. johnson. no requests at this time.
--- NOTE | 2020-04-12 12:53 | NUR ---
bedside report to lennie Archer
--- NOTE | 2020-04-12 12:54 | NUR ---
REPORT FROM SKYLER, ASSUME CARE OF PT AT THIS TIME.
[2020-04-12 13:00] VITALS: BP 120/67
== END 2020-04-12 13:15 | disposition home or self-care (01) ==
LOC: ED 11:12
DX: R56.9 Unspecified convulsions (principal); R51 Headache; R42 Dizziness and giddiness; J45.909 Unspecified asthma, uncomplicated; Z90.89 Acquired absence of other organs; Z90.49 Acquired absence of other specified parts of digestive tract; Z98.51 Tubal ligation status; Z90.721 Acquired absence of ovaries, unilateral
CPT/HCPCS: 36415; 80048; 82040; 85025; 99283

== ENCOUNTER 2020-05-04 19:01 | Emergency (ER) | payer MEDICAID ==
[~2020-05-04] VITALS: Ht 170.2 cm; Wt 75.0 kg
--- NOTE | 2020-05-04 19:05 | NUR ---
44 year old female to ed with remsa for etoh intoxication. She was found sitting on a sidewalk with her friend. He was arrested. She was wittnessed to curl up when questioned, so EMS was called on scene. She endorses a PMHx of seizures and states she is compliant with her medication. She does endorse having multiple seizures a week. She also states she is a daily drinker. Currently AAO x 4, GCS 15, speech is slurred but follows commands.
[2020-05-04 21:14] LABS: ALBUMIN 3.3 g/dL (3.4-5.0); ANION GAP 7 mmol/L (5-15); CALCIUM 8.1 mg/dL (8.5-10.1); CHLORIDE 107 mmol/L (98-107); CREATININE 0.64 mg/dL (0.55-1.02)
--- NOTE | 2020-05-04 21:14 | NUR ---
PATIENT REQUESTING BATHROOM. SHE WAS ABLE TO AMBULATE WITH A CANE TO THE BATHROOM. SHE HAD A STEADY GAIT AND NO SIGNS OF DIFFICULTY OR DISTRESS.
[2020-05-04] MEDS ORDERED: POTASSIUM CHLORIDE 20 MEQ TAB.ER.PRT ONE (21:56)
[2020-05-04] MEDS ORDERED: POTASSIUM CHLORIDE 20 MEQ TAB.ER.PRT PO ONE (22:00)
[2020-05-04 22:43] VITALS: BP 128/84
== END 2020-05-04 22:45 | disposition home or self-care (01) ==
LOC: ED 21:27
DX: F10.220 Alcohol dependence with intoxication, uncomplicated (principal); E87.6 Hypokalemia; J45.909 Unspecified asthma, uncomplicated; Z90.89 Acquired absence of other organs; Z90.49 Acquired absence of other specified parts of digestive tract; Z98.51 Tubal ligation status; Z90.721 Acquired absence of ovaries, unilateral; Y90.0 Blood alcohol level of less than 20 mg/100 ml
CPT/HCPCS: 36415; 80048; 80307; 82040; 99283

== ENCOUNTER 2020-05-15 11:29 | Emergency (ER) | payer MEDICAID ==
[~2020-05-15] VITALS: Ht 162.6 cm; Wt 77.3 kg
--- NOTE | 2020-05-15 12:00 | NUR ---
pt here for sob, not feeling well, using inhaler more. covid neg last week at [facility]. also claiming SI "i want to jump off the bridge on [address]" is homeless right now. slight wheezing R side. a&ox4 gcs 15, nad. vss. call stephanie. awaiting md. charge master analyst notified. as
--- NOTE | 2020-05-15 12:36 | NUR ---
[employer] OFFICE CALLED AND SITTER REQUESTED.
[2020-05-15 12:46] LABS: BASOPHILS % (AUTO) 1 % (0-1); EOSINOPHILS % (AUTO) 3 % (1-7); LYMPHOCYTES % (AUTO) 25 % (22-44); MEAN CORPUSCULAR HEMOGLOBIN 32.9 pg (27.0-34.8); MEAN CORPUSCULAR HGB CONC 33.8 g/dL (32.4-35.8); MEAN PLATELET VOLUME 7.4 fL (7.4-10.4); MONOCYTES % (AUTO) 6 % (2-9); NEUTROPHILS % (AUTO) 64 % (42-75); PLATELET COUNT 244 x10^3/uL (130-400); RED BLOOD COUNT 4.13 x10^6/uL (3.82-5.3); RED CELL DISTRIBUTION WIDTH 13.5 % (9.6-15.2)
[2020-05-15 12:49] LABS: MD NO
--- NOTE | 2020-05-15 12:52 | NUR ---
belongings locked up: 3 bags 1 backpack 1 suitcase 1 cane. sitter requested as
[2020-05-15 12:54] LABS: ALBUMIN 3.9 g/dL (3.4-5.0); ANION GAP 6 mmol/L (5-15); CALCIUM 8.5 mg/dL (8.5-10.1); CHLORIDE 111 mmol/L (98-107)
[2020-05-15 13:07] LABS: CREATININE 0.73 mg/dL (0.55-1.02); SALICYLATE LEVEL 5.4 mg/dL (2.8-20.0)
--- NOTE | 2020-05-15 13:11 | NUR ---
Assumed care of patient from Kylah. Pt on monitors. Pt reports she is unable to provide UA at this time.
[2020-05-15] MEDS ORDERED: IBUPROFEN 200 MG TABLET PO ONE (14:00)
[2020-05-15] MEDS ORDERED: IBUPROFEN 800 MG TABLET ONE (14:06)
--- NOTE | 2020-05-15 14:07 | NUR ---
pt c/o r hip pain, updated med ordered and adminstered
--- NOTE | 2020-05-15 14:10 | NUR ---
Pt remains calm, medicated for pain. Pt has sitter outside room for continous safety monitor.
--- NOTE | 2020-05-15 14:33 | NUR ---
UA collected and sent to lab.
[2020-05-15 14:58] LABS: AMPHETAMINE SCREEN, URINE Negative (Negative); BARBITURATE SCREEN, URINE Negative (Negative); BENZODIAZEPINE SCREEN, URINE Negative (Negative); CANNABINOID SCREEN, URINE Negative (Negative); COCAINE SCREEN, URINE Negative (Negative); METHADONE SCREEN, URINE Negative (Negative); OPIATE SCREEN, URINE Negative (Negative)
[2020-05-15] MEDS: SERTRALINE 50MG TABLET PO SCH (16:00)
--- NOTE | 2020-05-15 17:46 | NUR ---
PT REMAINS SITTING IN [facility], IN VIEW OF MAE WARREN.
--- NOTE | 2020-05-15 18:08 | NUR ---
PACKET FAXED TO [facility] AND [facility]. [facility] WILL PROBABLY TAKE PENDING NEGATIVE COVID TEST
--- NOTE | 2020-05-15 18:49 | NUR ---
PT PROVIDED WITH MEAL, IN VIEW OF SITTER.
--- NOTE | 2020-05-15 19:07 | NUR ---
Pt resting comfortably on stretcher. No s/sx acute distress. Visible chest rise/fall noted. Bed low, side rails up, call brown within reach
--- NOTE | 2020-05-15 19:07 | NUR ---
Continuation of previous note from 1907. Dionicioter remains within immediate vicinity of pt
--- NOTE | 2020-05-15 20:20 | NUR ---
Continues to rest comfortably on stretcher. Visible chest rise/fall noted. Sitter remains at bedside
[2020-05-15] MEDS ORDERED: SERTRALINE 50MG TABLET ONE (20:59)
--- NOTE | 2020-05-15 21:23 | NUR ---
Pt states she takes zoloft dose in AM
--- NOTE | 2020-05-15 23:44 | NUR ---
Resting comfortably. No s/sx acute distress. Sitter remains at bedside
--- NOTE | 2020-05-16 00:21 | NUR ---
Pt remains resting comfortably on stretcher. Visible chest rise/fall noted. Safety watch remains in place
--- NOTE | 2020-05-16 01:25 | NUR ---
Pt resting comfortably on stretcher. Sitter remains at bedside
--- NOTE | 2020-05-16 03:11 | NUR ---
Resting comfortably. Sitter remains at bedside
--- NOTE | 2020-05-16 04:20 | NUR ---
Pt resting comfortably. Security watch remains in place
--- NOTE | 2020-05-16 07:05 | NUR ---
Attempted report x1 at 0790
[2020-05-16] MEDS ORDERED: METHOCARBAMOL 500 MG TABLET ONE (08:24)
[2020-05-16] MEDS ORDERED: HYDROcodone/APAP 5/325 TABLET ONE (08:24)
--- NOTE | 2020-05-16 08:50 | NUR ---
THROUGHPUT RN: JOSE W/ [facility] AT [facility] WHO STATES THEY WILL MORE THAN LIKELY TAKE PT WHEN COVID RESULT COMPLETED.
[2020-05-16] MEDS ORDERED: SERTRALINE 50MG TABLET ONE (09:03)
--- NOTE | 2020-05-16 09:20 | NUR ---
PT RESTING ON [facility] BED, REQUESTING TO GO TO THE BATHROOM. PT ASSISTED TO THE COMMODE. PT A&O TO PERSON, PLACE, TIME, AND SITUATION. PT STATES HER SUICIDAL FEELSINGS ARE "HALF" WHAT THEY WERE YESTERDAY. SHE STATED SHE HAD A PLAN TO JUMP OFF [employer], BUT DOES NOT FEEL THE SAME TODAY SHE FEELS SAFE HERE. PT DOES NOT FEEL SAFE AT THE HALF-WAY. PT BREAKFAST TRAY DELIVERED.
[2020-05-16] MEDS: SERTRALINE 50MG TABLET PO SCH (09:25)
--- NOTE | 2020-05-16 09:34 | NUR ---
SPOKE WITH DR. DAILEY ABOUT GETTING THE PT'S SEIZURE MEDS ORDERED. DR DAILEY ORDERED THE PT'S MEDS.
--- NOTE | 2020-05-16 09:36 | NUR ---
PT RESTING ON HEMALATHA BERMAN IN LINE OF SIGHT IN SITTER.
[2020-05-16] MEDS ORDERED: HEPARIN 5,000 UNITS/ML, 1ML ONE (09:56)
[2020-05-16] MEDS: OXCARBAZEPINE 150 MG TABLET PO SCH ×2 (11:11→21:36)
[2020-05-16] MEDS: TOPIRAMATE 100 MG TABLET PO SCH ×2 (11:11→21:36)
--- NOTE | 2020-05-16 11:14 | NUR ---
PT MEDICATED PER SEP. PT ASSISTED TO THE COMMODE. ALL NEEDS MET AT THIS TIME.
--- NOTE | 2020-05-16 11:17 | NUR ---
PT PLACED ON HOSPITAL BED. UOB INTO CHAIR WITHOUT ASSISTANCE AND NO SOB NOTED WITH EXERTION
[2020-05-16] MEDS ORDERED: TRAZODONE 50MG TABLET PO PRN (11:30)
[2020-05-16] MEDS ORDERED: HYDROXYZINE PAMOATE 50MG CAP PO PRN (11:30)
--- NOTE | 2020-05-16 12:52 | NUR ---
LUNCH TRAY DELIVERED. PT'S NEEDS MET AT THIS TIME.
[2020-05-16] MEDS ORDERED: HYDROXYZINE PAMOATE 50MG CAP ONE (13:56)
--- NOTE | 2020-05-16 13:59 | NUR ---
PT REQUESTED MEDICATION FOR INCREASING ANXIETY.
--- NOTE | 2020-05-16 15:20 | NUR ---
PT RESTING WITH EYES CLOSED, EVEN RISE AND FALL OF CHEST NOTED. VSS ON THE MONITOR.
--- NOTE | 2020-05-16 17:05 | NUR ---
PT C/O OF UPPER CHEST AND UPPER BACK ITCHING FROM BED BUG BITES
--- NOTE | 2020-05-16 17:47 | NUR ---
PT DINNER TRAY DELIVERED. ALL PT'S NEEDS MET AT THIS TIME.
[2020-05-16] MEDS ORDERED: TRAZODONE 50MG TABLET ONE (20:43)
[2020-05-16 20:49] VITALS: BP 114/65
--- NOTE | 2020-05-17 00:37 | NUR ---
REPORT FROM RIYA GRAHAM. PT RESTING IN BED, RESPIRATIONS EVEN AND UNLABORED. LEAHN. IN VIEW OF SITTER.
--- NOTE | 2020-05-17 01:23 | NUR ---
Break RN: Patient sleeping on hospital bed, respirations even and unlabored, sitter by door for safety, room secured.
--- NOTE | 2020-05-17 01:50 | NUR ---
Report received from RIYA Mackenzie. This RN to assume care.
--- NOTE | 2020-05-17 02:47 | NUR ---
Patient asked about seizure meds. Advised patient she gets them at 2100 and 0900. Patient agreed. [facility] has accepted patient. COVID test still pending. Rapid COVID performed per orders and walked to lab.
--- NOTE | 2020-05-17 03:36 | NUR ---
Patient sleeping in hospital bed. Respirations even and unlabored. Room secured, belongings locked in cabinet. Sitter outside.
--- NOTE | 2020-05-17 03:36 | NUR ---
Rapid COVID pending.
--- NOTE | 2020-05-17 03:49 | NUR ---
Patient's rapid COVID negative; spoke with Javon at [facility] to f/u with accepting patient. He will f/u with doc and get back to us.
--- NOTE | 2020-05-17 04:16 | NUR ---
[facility] ACCEPTED PT AT THIS TIME.
--- NOTE | 2020-05-17 04:36 | NUR ---
Report given to RIYA Davila. Patient to be transferred to room 381-2.
[2020-05-21] MEDS ORDERED: DULO30CA2 PO (15:10)
== END 2020-05-17 04:49 ==
LOC: ED 12:10
DX: J20.9 Acute bronchitis, unspecified (principal); F33.9 Major depressive disorder, recurrent, unspecified; Z20.828 Contact with and (suspected) exposure to other viral communicable diseases; J45.909 Unspecified asthma, uncomplicated; R11.2 Nausea with vomiting, unspecified; R00.0 Tachycardia, unspecified
CPT/HCPCS: 36415; 71045; 80048; 80307; 82040; 84703; 85025; 87635; 93005; 99285

== ENCOUNTER 2020-08-22 18:24 | Emergency (ER) | payer MEDICAID ==
[~2020-08-22] VITALS: Ht 170.2 cm; Wt 70.0 kg
[~2020-08-22 18:24] MED LIST changes: +DULO30CA2 PO
--- NOTE | 2020-08-22 18:53 | NUR ---
Pt A0x2. Dr. Mcgee at bedside. Pt on director of cardiac cath lab, c-collar in place. Pt covered in warm blankets. Will continue to monitor.
--- NOTE | 2020-08-22 18:54 | NUR ---
Pt arousable to to painful stimuli only. When this RN opens pt eyelids, pupils 2mm, equal, reactive to light, nystagmus present. Pt in c-collar and c-spine precautions. Sats >92% on RA. Pt has working IV. Seizure pads in place.
[2020-08-22] MEDS ORDERED: SODIUM CHLORIDE FLUSH 10ML SYR IVF ONE (19:00)
--- NOTE | 2020-08-22 19:00 | NUR ---
Lab at bedside.
--- NOTE | 2020-08-22 19:03 | NUR ---
Pt to imaging.
[2020-08-22 19:13] LABS: BASOPHILS % (AUTO) 1 % (0-1); EOSINOPHILS % (AUTO) 3 % (1-7); LYMPHOCYTES % (AUTO) 28 % (22-44); MEAN CORPUSCULAR HEMOGLOBIN 32.3 pg (27.0-34.8); MEAN CORPUSCULAR HGB CONC 34.5 g/dL (32.4-35.8); MEAN PLATELET VOLUME 7.3 fL (7.4-10.4); MONOCYTES % (AUTO) 8 % (2-9); NEUTROPHILS % (AUTO) 60 % (42-75); PLATELET COUNT 238 x10^3/uL (130-400); RED BLOOD COUNT 4.21 x10^6/uL (3.82-5.3); RED CELL DISTRIBUTION WIDTH 12.9 % (9.6-15.2)
[2020-08-22 19:14] LABS: MD NO
[2020-08-22 19:23] LABS: ALANINE AMINOTRANSFERASE 20 U/L (12-78); ALBUMIN 3.4 g/dL (3.4-5.0); ANION GAP 10 mmol/L (5-15); CHLORIDE 109 mmol/L (98-107); CREATININE 0.71 mg/dL (0.55-1.02)
[2020-08-22 19:25] LABS: ALKALINE PHOSPHATASE 79 U/L (45-117); BILIRUBIN,TOTAL 0.3 mg/dL (0.2-1.0); TOTAL PROTEIN 6.4 g/dL (6.4-8.2)
[2020-08-22 19:26] LABS: INTERNATIONAL NORMALIZED RATIO 1.03 (0.93-1.1)
--- NOTE | 2020-08-22 19:50 | NUR ---
Pt's Jamal called. Gave him update over phone per pt confirmation. Pt hooked up to fem cath. Urinating. Pt's requesting social work consult for pt as he and his are homeless. Social work consult placed.
--- NOTE | 2020-08-22 20:22 | NUR ---
Pt sleeping, snoring. Equal chest rise and fall. Pt visible from nurses station.
--- NOTE | 2020-08-22 20:32 | NUR ---
C-collar removed per Dr. Mcgee instruction.
--- NOTE | 2020-08-22 20:45 | NUR ---
Dr. Mcgee reports we will just continue to monitor pt, MTF, send home with seizure medications.
--- NOTE | 2020-08-22 21:04 | NUR ---
LINENS CHANGED, PT REPOSISITONED. VSS NADN
--- NOTE | 2020-08-22 21:36 | NUR ---
Family member at bedside.
--- NOTE | 2020-08-22 21:48 | NUR ---
Pt's requesting we "get her into a homeless care home". This RN was able to contact [facility] and verify that the pt would be able to get in there for the night. Plan is for pt to [place] then take a taxi with [employer] voucher to [facility]. Pt sleeping, breathing equal, non-labored, visible from nurses station. at bedside.
--- NOTE | 2020-08-22 22:37 | NUR ---
Pt ambulating to bathroom using her cane that she normally walks with and 1 person assistance.
--- NOTE | 2020-08-22 22:49 | NUR ---
Pt sleeping, at bedside. Breathing equal, non-labored.
--- NOTE | 2020-08-22 22:59 | NUR ---
Provided pt peanut butter, crackers, juice.
--- NOTE | 2020-08-22 23:11 | NUR ---
Pt sitting up in bed, eating.
--- NOTE | 2020-08-22 23:32 | NUR ---
Pt's shouting at pt, telling her she needs to go to a assisted or else he will end up in [facility]. This RN asked pt's to leave- he cooperatively left.
[2020-08-22 23:47] VITALS: BP 103/63
--- NOTE | 2020-08-22 23:55 | NUR ---
Provided pt bus pass and list of homeless shelters and addresses. Pt agrees with and understands discharge plan and instructions and prescriptions. Pt getting dressed now.
== END 2020-08-23 00:34 | disposition home or self-care (01) ==
LOC: ED 19:37
DX: S09.90XA Unspecified injury of head, initial encounter (principal); F10.229 Alcohol dependence with intoxication, unspecified; R55 Syncope and collapse; R56.9 Unspecified convulsions; M54.2 Cervicalgia; X58.XXXA Exposure to other specified factors, initial encounter; Y93.89 Activity, other specified; Y92.89 Other specified places as the place of occurrence of the external cause; Y99.8 Other external cause status; Y90.0 Blood alcohol level of less than 20 mg/100 ml
CPT/HCPCS: 36415; 70450; 72125; 80053; 80320; 85025; 85610; 93005; 99285; G0480

== ENCOUNTER 2020-10-22 00:33 | Emergency (ER) | payer MEDICAID ==
[~2020-10-22] VITALS: Ht 162.6 cm; Wt 80.0 kg
--- NOTE | 2020-10-22 00:35 | NUR ---
PT AMBULATORY TO RESTROOM WITH STEADY GAIT.
[2020-10-22] MEDS ORDERED: ACETAMINOPHEN 500 MG TABLET PO ONE (01:00)
--- NOTE | 2020-10-22 01:21 | NUR ---
No complaints at this time. Patient up and ambulatory to the BR.
[2020-10-22 01:25] LABS: BASOPHILS % (AUTO) 1 % (0-1); EOSINOPHILS % (AUTO) 4 % (1-7); LYMPHOCYTES % (AUTO) 26 % (22-44); MEAN CORPUSCULAR HEMOGLOBIN 31.7 pg (27.0-34.8); MEAN PLATELET VOLUME 7.4 fL (7.4-10.4); MONOCYTES % (AUTO) 9 % (2-9); NEUTROPHILS % (AUTO) 60 % (42-75); PLATELET COUNT 226 x10^3/uL (130-400); RED BLOOD COUNT 4.27 x10^6/uL (3.82-5.3); RED CELL DISTRIBUTION WIDTH 14.1 % (9.6-15.2)
[2020-10-22 01:27] LABS: MD NO
[2020-10-22 01:32] LABS: ALBUMIN 3.4 g/dL (3.4-5.0); ANION GAP 4 mmol/L (5-15); CALCIUM 8.1 mg/dL (8.5-10.1); CHLORIDE 112 mmol/L (98-107); CREATININE 0.82 mg/dL (0.55-1.02)
[2020-10-22 02:09] VITALS: BP 99/54
== END 2020-10-22 02:11 | disposition home or self-care (01) ==
LOC: ED 01:55
DX: F10.220 Alcohol dependence with intoxication, uncomplicated (principal); Z72.9 Problem related to lifestyle, unspecified; J45.909 Unspecified asthma, uncomplicated; G40.909 Epilepsy, unspecified, not intractable, without status epilepticus; F17.210 Nicotine dependence, cigarettes, uncomplicated; Z90.49 Acquired absence of other specified parts of digestive tract; Y90.0 Blood alcohol level of less than 20 mg/100 ml
CPT/HCPCS: 36415; 80048; 80320; 82040; 85025; 99406; G0480

== ENCOUNTER 2020-10-29 11:12 | Emergency (ER) | payer MEDICAID ==
[~2020-10-29] VITALS: Ht 162.6 cm; Wt 79.8 kg
[2020-10-29 11:15] VITALS: BP 133/80
== END 2020-10-29 12:50 | disposition home or self-care (01) ==
LOC: ED 11:54
DX: B34.9 Viral infection, unspecified (principal); J45.909 Unspecified asthma, uncomplicated; G40.909 Epilepsy, unspecified, not intractable, without status epilepticus; Z20.822 Contact with and (suspected) exposure to COVID-19; Z90.49 Acquired absence of other specified parts of digestive tract
CPT/HCPCS: 71045; 99284; U0003

== ENCOUNTER 2020-11-13 12:16 | Emergency (ER) | payer MEDICAID ==
[~2020-11-13] VITALS: Ht 160 cm; Wt 82.2 kg
--- NOTE | 2020-11-13 12:44 | NUR ---
PT BIB P/V FOR POSSIBLE SZ LAST NOC AND FALL. PT REPORTS PAIN TO NECK, LEFT ARM/SHOULDER, AND CHRONIC LOW BACK PAIN. SHE REPORTS URINARY INCONTINENCE BUT THIS HAS BEEN ALSO AN ONGPOING PROBLEM AND NOT NEW. NO ORAL TRAUMA. SZ PADS IN PLACE. PT ON MONITOR.
[2020-11-13 14:08] VITALS: BP 115/72
--- NOTE | 2020-11-13 14:09 | NUR ---
PT BACK FROM CT, RESTING. VSS
== END 2020-11-13 15:57 | disposition home or self-care (01) ==
LOC: ED 14:08
DX: S16.1XXA Strain of muscle, fascia and tendon at neck level, initial encounter (principal); M54.5 Low back pain; R04.0 Epistaxis; M25.519 Pain in unspecified shoulder; X58.XXXA Exposure to other specified factors, initial encounter; Y93.89 Activity, other specified; Y92.89 Other specified places as the place of occurrence of the external cause; Y99.8 Other external cause status
CPT/HCPCS: 70486; 72125; 93005; 99285

== ENCOUNTER 2020-12-13 14:36 | Emergency (ER) | payer MEDICAID ==
[~2020-12-13] VITALS: Ht 162.6 cm; Wt 80.0 kg
--- NOTE | 2020-12-13 14:48 | NUR ---
biba after having SOB and itchy throat after J&J COVID vaccine. pt w/ hx of asthma and COPD. pt also ran out of inhaler medications. [facility] bill to bedside for evaluation. pt with steady gait bed.postioned to comfort. attached to monitors. vss. johnson.
[2020-12-13] MEDS ORDERED: DIPHENHYDRAMINE 25 MG CAPSULE PO ONE (15:00)
[2020-12-13 15:42] VITALS: BP 131/69
== END 2020-12-13 16:01 | disposition home or self-care (01) ==
LOC: ED 14:50
DX: R06.00 Dyspnea, unspecified (principal); R06.02 Shortness of breath; F17.210 Nicotine dependence, cigarettes, uncomplicated; Z72.9 Problem related to lifestyle, unspecified; J45.909 Unspecified asthma, uncomplicated; Z90.89 Acquired absence of other organs; Z90.49 Acquired absence of other specified parts of digestive tract
CPT/HCPCS: 71046; 99283; 99406

== ENCOUNTER 2021-01-16 00:44 | Emergency (ER) | payer MEDICAID ==
[~2021-01-16] VITALS: Ht 162.6 cm; Wt 82.0 kg
--- NOTE | 2021-01-16 04:27 | NUR ---
Pt rolling around on gurney, taking clothes off. Pt still very drowsy.VSS, MTF.
--- NOTE | 2021-01-16 04:51 | NUR ---
ASSUMED CARE FROM RIYA ESCOBAR. PT RESTING IN [facility], MONITORING IN PLACE, LEAHN AT THIS TIME, ROSANNE.
[2021-01-16 08:24] VITALS: BP 115/78
== END 2021-01-16 08:25 | disposition home or self-care (01) ==
LOC: ED 01:17
DX: S06.0X0A Concussion without loss of consciousness, initial encounter (principal); S00.03XA Contusion of scalp, initial encounter; F10.120 Alcohol abuse with intoxication, uncomplicated; G40.909 Epilepsy, unspecified, not intractable, without status epilepticus; J45.909 Unspecified asthma, uncomplicated; W01.0XXA Fall on same level from slipping, tripping and stumbling without subsequent striking against object, initial encounter; Y93.01 Activity, walking, marching and hiking; Y92.830 Public park as the place of occurrence of the external cause; Y99.8 Other external cause status
CPT/HCPCS: 70450; 99284

== ENCOUNTER 2021-01-21 11:45 | Emergency (ER) | payer MEDICAID ==
[~2021-01-21] VITALS: Ht 162.6 cm; Wt 82.0 kg
--- NOTE | 2021-01-21 12:35 | NUR ---
PT HAD A WITNESSED SZ LASTING 5 MIN BY PER EMS. PT WAS GIVEN 2MG VERSED IM @1110 BY EMS WITH PT A/O X4 WITH IN MIN OF VERSED PER EMS
--- NOTE | 2021-01-21 13:00 | NUR ---
Noted pt in room sleeping with NAD noted. No report received, unknown story until reading triage note. Appears to be awaiting PA assessment.
[2021-01-21] MEDS ORDERED: SODIUM CHLORIDE 0.9% 1,000ML IVBOLUS ONE (13:30)
[2021-01-21] MEDS ORDERED: SODIUM CHLORIDE FLUSH 10ML SYR IVF ONE (13:30)
[2021-01-21 14:00] LABS: BASOPHILS % (AUTO) 1 % (0-1); EOSINOPHILS % (AUTO) 3 % (1-7); LYMPHOCYTES % (AUTO) 35 % (22-44); MEAN CORPUSCULAR HEMOGLOBIN 31.2 pg (27.0-34.8); MEAN CORPUSCULAR HGB CONC 34.2 g/dL (32.4-35.8); MEAN PLATELET VOLUME 7.3 fL (7.4-10.4); MONOCYTES % (AUTO) 7 % (2-9); NEUTROPHILS % (AUTO) 54 % (42-75); PLATELET COUNT 224 x10^3/uL (130-400); RED BLOOD COUNT 3.87 x10^6/uL (3.82-5.3)
[2021-01-21 14:11] LABS: ALANINE AMINOTRANSFERASE 19 U/L (12-78); ALBUMIN 2.6 g/dL (3.4-5.0); CALCIUM 7.4 mg/dL (8.5-10.1); CREATININE 0.58 mg/dL (0.55-1.02)
[2021-01-21 14:13] LABS: ALKALINE PHOSPHATASE 60 U/L (45-117); BILIRUBIN,TOTAL 0.2 mg/dL (0.2-1.0); TOTAL PROTEIN 5.6 g/dL (6.4-8.2)
[2021-01-21 14:20] LABS: ANION GAP 7 mmol/L (5-15); CHLORIDE 116 mmol/L (98-107)
--- NOTE | 2021-01-21 14:20 | NUR ---
IV started and IVF running well at this time. VS reassessed, pt with ALEXIS on L posterior side after fall.
--- NOTE | 2021-01-21 14:25 | NUR ---
Lashon provided and diet tray ordered after OK received from PROSPER.
--- NOTE | 2021-01-21 14:53 | NUR ---
Lunch tray brought into pt and d/c papers ready when IVF are completed.
[2021-01-21 15:51] VITALS: BP 125/76
== END 2021-01-21 15:53 | disposition home or self-care (01) ==
LOC: ED 14:25
DX: G40.309 Generalized idiopathic epilepsy and epileptic syndromes, not intractable, without status epilepticus (principal); F10.129 Alcohol abuse with intoxication, unspecified; F17.210 Nicotine dependence, cigarettes, uncomplicated; Y90.0 Blood alcohol level of less than 20 mg/100 ml
CPT/HCPCS: 36415; 80053; 80320; 85025; 93005; 96360; 99284; 99406; J7030; G0480

== ENCOUNTER 2021-01-23 00:42 | Emergency (ER) | payer MEDICAID ==
[~2021-01-23] VITALS: Ht 162.6 cm; Wt 77.2 kg
[2021-01-23 01:36] VITALS: BP 107/66
[2021-01-23 01:39] LABS: BASOPHILS % (AUTO) 1 % (0-1); EOSINOPHILS % (AUTO) 3 % (1-7); LYMPHOCYTES % (AUTO) 30 % (22-44); MEAN CORPUSCULAR HEMOGLOBIN 31.2 pg (27.0-34.8); MEAN CORPUSCULAR HGB CONC 33.7 g/dL (32.4-35.8); MEAN PLATELET VOLUME 7.4 fL (7.4-10.4); MONOCYTES % (AUTO) 9 % (2-9); NEUTROPHILS % (AUTO) 57 % (42-75); PLATELET COUNT 247 x10^3/uL (130-400); RED BLOOD COUNT 3.97 x10^6/uL (3.82-5.3); RED CELL DISTRIBUTION WIDTH 14.9 % (9.6-15.2)
[2021-01-23 01:45] LABS: ALANINE AMINOTRANSFERASE 22 U/L (12-78); ALBUMIN 3.1 g/dL (3.4-5.0); ANION GAP 4 mmol/L (5-15); CALCIUM 8.2 mg/dL (8.5-10.1); CHLORIDE 112 mmol/L (98-107); CREATININE 0.65 mg/dL (0.55-1.02)
[2021-01-23 01:47] LABS: ALKALINE PHOSPHATASE 68 U/L (45-117); BILIRUBIN,TOTAL 0.2 mg/dL (0.2-1.0); TOTAL PROTEIN 6.5 g/dL (6.4-8.2)
--- NOTE | 2021-01-23 01:52 | NUR ---
PT AMBULATORY TO THE BATHROOM WITH A CANE AND STEADY GAIT.
[2021-01-24] MEDS ORDERED: TRAZ-175 PO (12:30)
[2021-01-24] MEDS ORDERED: CLON0.1T2 PO (12:46)
== END 2021-01-23 03:50 | disposition home or self-care (01) ==
LOC: ED 02:43
DX: G40.409 Other generalized epilepsy and epileptic syndromes, not intractable, without status epilepticus (principal); F10.120 Alcohol abuse with intoxication, uncomplicated; Z72.9 Problem related to lifestyle, unspecified; F17.200 Nicotine dependence, unspecified, uncomplicated; J45.909 Unspecified asthma, uncomplicated
CPT/HCPCS: 36415; 80053; 80320; 85025; 99283; G0480

== ENCOUNTER 2021-01-24 10:16 | Inpatient (IN) | payer MEDICAID ==
[~2021-01-24] VITALS: Ht 162.6 cm; Wt 83.3 kg
[2021-01-24] MEDS ORDERED: POLYETHYLENE GLYCOL 17 GM PACKET PO PRN (10:30)
[2021-01-24] MEDS ORDERED: DOCUSATE 100 MG CAPSULE PO PRN (10:30)
[2021-01-24] MEDS ORDERED: BISACODYL 10 MG SUPP PR PRN (10:30)
[2021-01-24] MEDS ORDERED: ONDANSETRON ODT 4 MG PO PRN (10:30)
[2021-01-24 11:14] VITALS: BP 117/79
[2021-01-24] MEDS ORDERED: TRAZ-175 PO (12:30)
[2021-01-24] MEDS ORDERED: CLON0.1T2 PO (12:46)
[2021-01-24] MEDS: ACETAMINOPHEN 325 MG TABLET PO PRN ×2 (13:51→20:34)
[2021-01-24] MEDS ORDERED: ORAJEL 7GM TUBE MM PRN (14:30)
[2021-01-24] MEDS ORDERED: ICN CLONIDINE 4MCG/ML ORAL.DIL PO PRN (15:00)
[2021-01-24] MEDS: ALBUTEROL HFA 90 MCG/SPRAY INH PRN ×3 (16:02→23:41)
[2021-01-24 19:40] VITALS: BP 109/60
[2021-01-24] MEDS: OXCARBAZEPINE 150 MG TABLET PO SCH (20:34)
[2021-01-24] MEDS: TOPIRAMATE 100 MG TABLET PO SCH (20:34)
[2021-01-25 06:32] LABS: CHOL/HDL RATIO 2.8; FREE T4 (FREE THYROXINE) 0.71 ng/dL (0.76-1.46); LDL/HDL RATIO 1.4 (0.5-3.0)
[2021-01-25 08:47] VITALS: BP 123/84
[2021-01-25] MEDS: TOPIRAMATE 100 MG TABLET PO SCH ×2 (08:58→20:35)
[2021-01-25] MEDS: DULOXETINE 30 MG CAPSULE.DR PO SCH (08:58)
[2021-01-25] MEDS: OXCARBAZEPINE 150 MG TABLET PO SCH ×2 (08:58→20:35)
[2021-01-25] MEDS: ACETAMINOPHEN 325 MG TABLET PO PRN ×3 (09:19→18:55)
[2021-01-25 13:39] LABS: MICROSCOPIC NOT IND
[2021-01-25] MEDS ORDERED: SUMATRIPTAN 25 MG TABLET PO PRN (14:30)
[2021-01-25 19:13] VITALS: BP 119/78
[2021-01-25] MEDS: SUMATRIPTAN 25 MG TABLET PO PRN (20:35)
[2021-01-26 07:27] VITALS: BP 113/72
[2021-01-26] MEDS: TOPIRAMATE 100 MG TABLET PO SCH ×2 (09:39→20:33)
[2021-01-26] MEDS: OXCARBAZEPINE 150 MG TABLET PO SCH ×2 (09:39→20:33)
[2021-01-26] MEDS: DULOXETINE 30 MG CAPSULE.DR PO SCH (09:39)
[2021-01-26] MEDS: SUMATRIPTAN 25 MG TABLET PO PRN (10:33)
[2021-01-26] MEDS: ACETAMINOPHEN 325 MG TABLET PO PRN ×2 (16:10→20:34)
[2021-01-26 19:02] VITALS: BP 113/77
[2021-01-27 07:30] VITALS: BP 100/65
[2021-01-27] MEDS: OXCARBAZEPINE 150 MG TABLET PO SCH ×2 (08:29→21:01)
[2021-01-27] MEDS: DULOXETINE 30 MG CAPSULE.DR PO SCH (08:29)
[2021-01-27] MEDS: TOPIRAMATE 100 MG TABLET PO SCH ×2 (08:30→21:01)
[2021-01-27] MEDS: SUMATRIPTAN 25 MG TABLET PO PRN (15:03)
[2021-01-27] MEDS: ALBUTEROL HFA 90 MCG/SPRAY INH PRN (18:02)
[2021-01-27 19:31] VITALS: BP 108/68
[2021-01-27] MEDS: ACETAMINOPHEN 325 MG TABLET PO PRN (21:00)
[2021-01-28 07:20] VITALS: BP 102/69
[2021-01-28] MEDS: ACETAMINOPHEN 325 MG TABLET PO PRN (09:09)
[2021-01-28] MEDS: DULOXETINE 30 MG CAPSULE.DR PO SCH (09:10)
[2021-01-28] MEDS: OXCARBAZEPINE 150 MG TABLET PO SCH ×2 (09:10→20:11)
[2021-01-28] MEDS: TOPIRAMATE 100 MG TABLET PO SCH ×2 (09:10→20:11)
[2021-01-28] MEDS: SUMATRIPTAN 25 MG TABLET PO PRN (13:54)
[2021-01-28] MEDS ORDERED: TOPI100T24 PO (15:16)
[2021-01-28] MEDS ORDERED: DULO30CA2 PO (15:16)
[2021-01-28] MEDS ORDERED: ALBU18HF INH (15:16)
[2021-01-28] MEDS ORDERED: OXCA150T18 PO (15:16)
[2021-01-28 20:00] VITALS: BP 133/78
[2021-01-29 07:16] VITALS: BP 100/64
[2021-01-29] MEDS: DULOXETINE 30 MG CAPSULE.DR PO SCH (08:41)
[2021-01-29] MEDS: OXCARBAZEPINE 150 MG TABLET PO SCH (08:41)
[2021-01-29] MEDS: TOPIRAMATE 100 MG TABLET PO SCH (08:41)
[2021-01-29] MEDS: ACETAMINOPHEN 325 MG TABLET PO PRN (10:45)
== END 2021-01-29 11:33 | disposition home or self-care (01) | DRG 885 ==
LOC: 3E 11:19
PROVIDERS: ADMIT Psychiatry & Neurology Psychosomatic Medicine; ATTEND Psychiatry & Neurology Psychosomatic Medicine
DX: F33.2 Major depressive disorder, recurrent severe without psychotic features (principal); F43.10 Post-traumatic stress disorder, unspecified; F17.210 Nicotine dependence, cigarettes, uncomplicated; G35 Multiple sclerosis; G40.909 Epilepsy, unspecified, not intractable, without status epilepticus; G43.909 Migraine, unspecified, not intractable, without status migrainosus; G89.29 Other chronic pain; J44.9 Chronic obstructive pulmonary disease, unspecified; M41.9 Scoliosis, unspecified; Z79.899 Other long term (current) drug therapy; Z81.8 Family history of other mental and behavioral disorders; Z98.2 Presence of cerebrospinal fluid drainage device; Z90.49 Acquired absence of other specified parts of digestive tract; Z82.5 Family history of asthma and other chronic lower respiratory diseases; Z88.8 Allergy status to other drugs, medicaments and biological substances
CPT/HCPCS: 36415; 99285; J7613; 71045; 80053; 80061; 80299; 80307; 80320; 80329; 81003; 84439; 84443; 84703; 85025; 93005; 94640; G0378; U0005; G0480; U0003

== ENCOUNTER 2021-02-07 22:02 | Emergency (ER) | payer MEDICAID ==
[~2021-02-07] VITALS: Ht 162.6 cm; Wt 81.8 kg
[~2021-02-07 22:02] MED LIST changes: +CLON0.1T2 PO; +OXCA150T18 PO; +TOPI100T24 PO; +TRAZ-175 PO
[2021-02-07 22:09] VITALS: BP 102/69
[2021-02-07] MEDS ORDERED: KETOROLAC 30 MG/1 ML IM ONE (22:30)
[2021-02-07] MEDS ORDERED: KETOROLAC 30 MG/1 ML ONE (22:42)
--- NOTE | 2021-02-07 22:49 | NUR ---
IM Toradol given, seizure precautions maintained, pt provided with pillow and blanket. In no acute distress.
--- NOTE | 2021-02-07 23:46 | NUR ---
Patient/Caregiver given discharge instructions and they have confirmed that they understand the instructions. Patient ambulatory with steady gait. NAD, all questions answered appropriately, denies additional needs at this time. No personal belongings left in room after discharge.
== END 2021-02-07 23:51 | disposition home or self-care (01) ==
LOC: ED 22:29
DX: G40.409 Other generalized epilepsy and epileptic syndromes, not intractable, without status epilepticus (principal); G44.209 Tension-type headache, unspecified, not intractable; R94.31 Abnormal electrocardiogram [ECG] [EKG]; F17.210 Nicotine dependence, cigarettes, uncomplicated; J45.909 Unspecified asthma, uncomplicated; Z90.49 Acquired absence of other specified parts of digestive tract; Z90.89 Acquired absence of other organs; Z90.721 Acquired absence of ovaries, unilateral
CPT/HCPCS: 93005; 96372; 99283; 99406; J1885

== ENCOUNTER 2021-02-09 21:42 | Inpatient (IN) | payer MEDICAID ==
[~2021-02-09] VITALS: Ht 162.6 cm; Wt 90.0 kg
[2021-02-09 21:56] LABS: BASOPHILS % (AUTO) 1 % (0-1); EOSINOPHILS % (AUTO) 4 % (1-7); LYMPHOCYTES % (AUTO) 26 % (22-44); MEAN CORPUSCULAR HEMOGLOBIN 30.8 pg (27.0-34.8); MEAN CORPUSCULAR HGB CONC 34.1 g/dL (32.4-35.8); MEAN PLATELET VOLUME 7.4 fL (7.4-10.4); MONOCYTES % (AUTO) 9 % (2-9); NEUTROPHILS % (AUTO) 59 % (42-75); PLATELET COUNT 299 x10^3/uL (130-400); RED BLOOD COUNT 3.79 x10^6/uL (3.82-5.3); RED CELL DISTRIBUTION WIDTH 14.3 % (9.6-15.2)
[2021-02-09] MEDS ORDERED: PLEASE ENTER HEIGHT AND WEIGHT MC SCH (22:00)
[2021-02-09] MEDS ORDERED: SODIUM CHLORIDE FLUSH 10ML SYR IVF ONE (22:00)
[2021-02-09 22:05] LABS: ALANINE AMINOTRANSFERASE 29 U/L (12-78); ANION GAP 8 mmol/L (5-15); CALCIUM 8.1 mg/dL (8.5-10.1); CHLORIDE 109 mmol/L (98-107); CREATININE 0.78 mg/dL (0.55-1.02)
[2021-02-09 22:08] LABS: ALKALINE PHOSPHATASE 72 U/L (45-117); BILIRUBIN,TOTAL 0.2 mg/dL (0.2-1.0); TOTAL PROTEIN 6.1 g/dL (6.4-8.2)
--- NOTE | 2021-02-09 22:20 | NUR ---
PT ARRIVED AND TAKEN TO CT SCAN AFTER ER EVALED PT IN HALLWAY, BLOOD DRAWN FOR PYTHON ARCHITECT, AND PT REGISTERED. PT TAKEN TO CT SCAN, AND PIV STARTED TO RIGHT AC 20G X1 AND BLOOD RETURNED. PT BACK TO TR3 ROOM, AND NEUROLOGY TO SPEAK WITH PT ON TELEROBOT. PT AWAKE AND ALERT, AND WITH MORE MOVEMENT TO EXTREMITIES. PT HAS REFLEXIVE MOVEMENT TO RIGHT LEG WITH BABINSKY, AND DURING EXAM BY NEUROLOGY, PT HELD RIGHT LEG UP 4 SECONDS, AND LEFT LEG HELD UP 5 SECONDS.
--- NOTE | 2021-02-09 22:42 | NUR ---
NEUROLOGY HAS RECOMMENDED TPA FOR PT. MD AWARE.
[2021-02-09] MEDS ORDERED: ALTEPLASE IV ONE (22:53)
[2021-02-09] MEDS ORDERED: ALTEPLASE 7 MG in SYRINGE 1 EA IVPush STA (22:53)
[2021-02-09 23:03] LABS: INTERNATIONAL NORMALIZED RATIO 0.97 (0.93-1.1); PROTHROMBIN TIME 10.4 Seconds (9.6-11.5)
[2021-02-09] MEDS ORDERED: ONDANSETRON 2MG/ML, 2ML IVPush PRN (23:30)
[2021-02-09] MEDS ORDERED: LABETALOL 5MG/ML, 20ML IV PRN (23:30)
[2021-02-09] MEDS ORDERED: GUAIFENESIN/DM 200-20MG, 10ML UDC PO PRN (23:30)
[2021-02-09] MEDS: POLYETHYLENE GLYCOL 17 GM PACKET PO SCH (23:30)
[2021-02-09] MEDS ORDERED: POTASSIUM CHLORIDE 20 MEQ TAB.ER.PRT PO ONE (23:30)
[2021-02-10] MEDS ORDERED: MELATONIN 5 MG TABLET PO PRN
--- NOTE | 2021-02-10 00:07 | NUR ---
REPORT TO 542 Nita RITTER
[2021-02-10] MEDS ORDERED: DULO60CA7 PO (00:41)
[2021-02-10] MEDS ORDERED: ALTEPLASE 1 ML ONE (03:58)
[2021-02-10] MEDS ORDERED: OMNIPAQUE 350 MG/ML, 100ML BOTTLE ONE (04:19)
[2021-02-10 04:22] LABS: BASOPHILS % (AUTO) 1 % (0-1); EOSINOPHILS % (AUTO) 4 % (1-7); LYMPHOCYTES % (AUTO) 37 % (22-44); MEAN CORPUSCULAR HEMOGLOBIN 30.8 pg (27.0-34.8); MEAN CORPUSCULAR HGB CONC 33.9 g/dL (32.4-35.8); MEAN PLATELET VOLUME 7.3 fL (7.4-10.4); MONOCYTES % (AUTO) 9 % (2-9); NEUTROPHILS % (AUTO) 48 % (42-75); PLATELET COUNT 275 x10^3/uL (130-400); RED BLOOD COUNT 3.83 x10^6/uL (3.82-5.3); RED CELL DISTRIBUTION WIDTH 14.3 % (9.6-15.2)
[2021-02-10 04:34] LABS: ALKALINE PHOSPHATASE 64 U/L (45-117); BILIRUBIN,TOTAL 0.1 mg/dL (0.2-1.0); CHOL/HDL RATIO 3.7; CHOLESTEROL, TOTAL 159 mg/dL (140-239); HDL CHOL % 27 % (28-40); HDL CHOLESTEROL (DIRECT) 43 mg/dL (40-60); LDL CHOLESTEROL,CALCULATED 77 mg/dL (54-169); LDL/HDL RATIO 1.8 (0.5-3.0); TOTAL PROTEIN 5.5 g/dL (6.4-8.2); TRIGLYCERIDES 196 mg/dL (50-200); VLDL CHOLESTEROL 39 mg/dL (0-25)
[2021-02-10 04:40] LABS: ANION GAP 5 mmol/L (5-15); CHLORIDE 112 mmol/L (98-107)
[2021-02-10 04:54] LABS: ALANINE AMINOTRANSFERASE 24 U/L (12-78); ALBUMIN 2.7 g/dL (3.4-5.0); CALCIUM 7.9 mg/dL (8.5-10.1); CREATININE 0.78 mg/dL (0.55-1.02)
[2021-02-10] MEDS: OXCARBAZEPINE 300MG TABLET PO SCH ×2 (09:06→20:57)
[2021-02-10] MEDS: TOPIRAMATE 100 MG TABLET PO SCH ×2 (09:07→20:57)
[2021-02-10] MEDS: THIAMINE 100MG TABLET PO SCH ×2 (09:07→20:57)
[2021-02-10] MEDS: DULOXETINE 30 MG CAPSULE.DR PO SCH (09:07)
[2021-02-10] MEDS: POLYETHYLENE GLYCOL 17 GM PACKET PO SCH ×2 (09:08→20:58)
[2021-02-10] MEDS: ACETAMINOPHEN 325 MG TABLET PO PRN ×2 (11:37→16:53)
[2021-02-10] MEDS ORDERED: TRAZODONE 100MG TABLET PO SCH (21:00)
[2021-02-10] MEDS ORDERED: ATORVASTATIN 40 MG TABLET PO SCH (21:00)
[2021-02-11] VITALS: BP 122/77
[2021-02-11 02:00] VITALS: BP 122/77
[2021-02-11 07:31] VITALS: BP 99/66
[2021-02-11] MEDS: THIAMINE 100MG TABLET PO SCH (08:07)
[2021-02-11] MEDS: TOPIRAMATE 100 MG TABLET PO SCH (08:07)
[2021-02-11] MEDS: POLYETHYLENE GLYCOL 17 GM PACKET PO SCH (08:07)
[2021-02-11] MEDS: DULOXETINE 30 MG CAPSULE.DR PO SCH (08:07)
[2021-02-11] MEDS: OXCARBAZEPINE 300MG TABLET PO SCH (08:12)
[2021-02-11] MEDS ORDERED: ASPIRIN 81 MG TABLET EC PO SCH (09:00)
[2021-02-11] MEDS ORDERED: ASPI81TA45 PO (09:16)
[2021-02-11] MEDS ORDERED: ATOR40TA78 PO (09:16)
== END 2021-02-11 11:40 | disposition home or self-care (01) | DRG 45 ==
LOC: ED 22:15 → EDIP 23:37 → CCU 02-10 00:19 → 4EST 02-10 23:45 → DCLOUNGE 02-11 11:30
PROVIDERS: ADMIT Internal Medicine; ATTEND Internal Medicine
DX: I63.89 Other cerebral infarction (principal); E11.65 Type 2 diabetes mellitus with hyperglycemia; E66.01 Morbid (severe) obesity due to excess calories; G35 Multiple sclerosis; M41.9 Scoliosis, unspecified; G40.209 Localization-related (focal) (partial) symptomatic epilepsy and epileptic syndromes with complex partial seizures, not intractable, without status epilepticus; Z88.8 Allergy status to other drugs, medicaments and biological substances; F17.210 Nicotine dependence, cigarettes, uncomplicated; F32.9 Major depressive disorder, single episode, unspecified; G43.009 Migraine without aura, not intractable, without status migrainosus; J45.909 Unspecified asthma, uncomplicated; K58.9 Irritable bowel syndrome, unspecified; R29.706 NIHSS score 6; R29.810 Facial weakness; G81.91 Hemiplegia, unspecified affecting right dominant side; Z90.49 Acquired absence of other specified parts of digestive tract; F41.1 Generalized anxiety disorder; Z68.30 Body mass index [BMI] 30.0-30.9, adult; E87.6 Hypokalemia; I10 Essential (primary) hypertension
CPT/HCPCS: 36415; 37195; 70450; 70496; 70498; 70551; 80047; 80053; 80061; 80320; 83735; 84100; 85025; 85610; 85730; 87081; 93005; 93306; 96372; 99283; 99406; G0378; J1885; J2997; Q9967; G0480

== ENCOUNTER 2021-02-18 00:57 | Emergency (ER) | payer MEDICAID ==
[~2021-02-18] VITALS: Ht 162.6 cm; Wt 87.0 kg
[~2021-02-18 00:57] MED LIST changes: +ASPI81TA45 PO; +ATOR40TA78 PO; +DULO60CA7 PO
--- NOTE | 2021-02-18 01:07 | NUR ---
PATIENT AMBULATORY TO RESTROOM WITH CANE.
[2021-02-18 01:30] LABS: BASOPHILS % (AUTO) 1 % (0-1); EOSINOPHILS % (AUTO) 1 % (1-7); LYMPHOCYTES % (AUTO) 14 % (22-44); MEAN CORPUSCULAR HEMOGLOBIN 31.3 pg (27.0-34.8); MEAN CORPUSCULAR HGB CONC 34.6 g/dL (32.4-35.8); MEAN PLATELET VOLUME 7.2 fL (7.4-10.4); MONOCYTES % (AUTO) 7 % (2-9); NEUTROPHILS % (AUTO) 78 % (42-75); PLATELET COUNT 281 x10^3/uL (130-400); RED BLOOD COUNT 4.26 x10^6/uL (3.82-5.3); RED CELL DISTRIBUTION WIDTH 14.9 % (9.6-15.2)
[2021-02-18 01:39] LABS: ALANINE AMINOTRANSFERASE 31 U/L (12-78); ALBUMIN 3.7 g/dL (3.4-5.0); ANION GAP 7 mmol/L (5-15); CALCIUM 8.2 mg/dL (8.5-10.1); CHLORIDE 108 mmol/L (98-107); CREATININE 0.79 mg/dL (0.55-1.02)
[2021-02-18 01:41] LABS: ALKALINE PHOSPHATASE 80 U/L (45-117); BILIRUBIN,TOTAL 0.3 mg/dL (0.2-1.0); TOTAL PROTEIN 7.5 g/dL (6.4-8.2)
[2021-02-18 01:44] VITALS: BP 121/73
--- NOTE | 2021-02-18 01:45 | NUR ---
BREAK RN: PT RESTING IN ROOM. VS STABLE. CALL LIGHT IN PLACE. WILL CONTINUE TO MONITOR WHILE PRIMARY RN IS ON BREAK.
--- NOTE | 2021-02-18 02:31 | NUR ---
Patient given discharge instructions and they have confirmed that they understand the instructions. Patient ambulatory with steady gait. NAD, all questions answered appropriately, denies additional needs at this time. No personal belongings left in room after discharge.
== END 2021-02-18 02:32 | disposition home or self-care (01) ==
LOC: ED 01:30
DX: R53.1 Weakness (principal); F17.210 Nicotine dependence, cigarettes, uncomplicated
CPT/HCPCS: 36415; 80053; 80320; 85025; G0480

== ENCOUNTER 2021-02-18 14:47 | Emergency (ER) | payer MEDICAID ==
[~2021-02-18] VITALS: Ht 162.6 cm; Wt 80.0 kg
[2021-02-18 14:57] VITALS: BP 121/58
[2021-02-18 15:44] LABS: BASOPHILS % (AUTO) 1 % (0-1); EOSINOPHILS % (AUTO) 1 % (1-7); LYMPHOCYTES % (AUTO) 18 % (22-44); MEAN CORPUSCULAR HEMOGLOBIN 30.7 pg (27.0-34.8); MEAN CORPUSCULAR HGB CONC 34.1 g/dL (32.4-35.8); MEAN PLATELET VOLUME 7.3 fL (7.4-10.4); MONOCYTES % (AUTO) 10 % (2-9); NEUTROPHILS % (AUTO) 71 % (42-75); PLATELET COUNT 269 x10^3/uL (130-400); RED BLOOD COUNT 4.13 x10^6/uL (3.82-5.3); RED CELL DISTRIBUTION WIDTH 14.8 % (9.6-15.2)
[2021-02-18 16:01] LABS: ALBUMIN 3.4 g/dL (3.4-5.0); ANION GAP 5 mmol/L (5-15); CALCIUM 8.2 mg/dL (8.5-10.1); CHLORIDE 113 mmol/L (98-107); CREATININE 0.72 mg/dL (0.55-1.02)
--- NOTE | 2021-02-18 16:49 | NUR ---
Patient given discharge instructions and they have confirmed that they understand the instructions. Patient ambulatory with steady gait.
== END 2021-02-18 16:52 | disposition home or self-care (01) ==
LOC: ED 15:33
DX: R53.1 Weakness (principal); F17.210 Nicotine dependence, cigarettes, uncomplicated
CPT/HCPCS: 36415; 80048; 80053; 80320; 82040; 85025; 93005; 99406; G0480

== ENCOUNTER 2021-02-20 23:08 | Emergency (ER) | payer MEDICAID ==
[~2021-02-20] VITALS: Ht 162.6 cm; Wt 82.0 kg
--- NOTE | 2021-02-20 23:24 | NUR ---
BIBA FOR DIFFICULTY BREATHING. PT STATES SHE HAS USED HER INHALER 10 X TODAY. PT HAS CLEAR LUNG SOUNDS THROUGHOUT. HX OF 1/2PPD SMOKING.
[2021-02-20 23:51] LABS: BASOPHILS % (AUTO) 1 % (0-1); EOSINOPHILS % (AUTO) 2 % (1-7); LYMPHOCYTES % (AUTO) 14 % (22-44); MEAN CORPUSCULAR HEMOGLOBIN 30.9 pg (27.0-34.8); MEAN CORPUSCULAR HGB CONC 34.5 g/dL (32.4-35.8); MEAN PLATELET VOLUME 7.5 fL (7.4-10.4); MONOCYTES % (AUTO) 10 % (2-9); NEUTROPHILS % (AUTO) 74 % (42-75); PLATELET COUNT 256 x10^3/uL (130-400); RED BLOOD COUNT 3.78 x10^6/uL (3.82-5.3); RED CELL DISTRIBUTION WIDTH 14.5 % (9.6-15.2)
[2021-02-21 00:02] LABS: ALBUMIN 3.1 g/dL (3.4-5.0); ANION GAP 12 mmol/L (5-15); CALCIUM 8.3 mg/dL (8.5-10.1); CHLORIDE 110 mmol/L (98-107); CREATININE 0.72 mg/dL (0.55-1.02)
--- NOTE | 2021-02-21 00:52 | NUR ---
PT SLEEPING. RESP EVEN AND UNLABORED
[2021-02-21 01:00] VITALS: BP 107/65
[2021-02-21] MEDS ORDERED: POTASSIUM CHLORIDE 20 MEQ TAB.ER.PRT PO ONE (01:00)
[2021-02-21] MEDS ORDERED: POTASSIUM CHLORIDE 20 MEQ TAB.ER.PRT ONE (01:08)
== END 2021-02-21 01:35 | disposition home or self-care (01) ==
LOC: ED 23:38
DX: J44.9 Chronic obstructive pulmonary disease, unspecified (principal); R06.00 Dyspnea, unspecified; E87.6 Hypokalemia; E11.9 Type 2 diabetes mellitus without complications; M19.90 Unspecified osteoarthritis, unspecified site; F17.210 Nicotine dependence, cigarettes, uncomplicated; Z86.73 Personal history of transient ischemic attack (TIA), and cerebral infarction without residual deficits; Z90.49 Acquired absence of other specified parts of digestive tract
CPT/HCPCS: 36415; 71045; 80048; 82040; 85025; 93005; 99285; J7512

== ENCOUNTER 2021-03-27 11:18 | Emergency (ER) | payer MEDICAID ==
[~2021-03-27] VITALS: Ht 162.6 cm; Wt 86.7 kg
--- NOTE | 2021-03-27 11:18 | NUR ---
SKIN SPECIALIST: CALLED CODE NEURO PRIOR TO ADMIT, ONSET OF S/S 1000.
--- NOTE | 2021-03-27 11:33 | NUR ---
PT TO CT. PIV PLACED IN CT. NSR ON MONITOR [id number].
[2021-03-27] MEDS ORDERED: OMNIPAQUE 350 MG/ML, 100ML BOTTLE ONE (11:45)
--- NOTE | 2021-03-27 11:52 | NUR ---
TELE NEURO ASSESSMENT. NOT A CANDIDATE FOR TPA (GOT TPA 1 MONTH AGO). PT W 5/5 STRENGTH L SIDE, 1/5 STRENGTH R SIDE. DECR SENSATION R ARM/RLEG R FACE. PEARRL 4. A&OX4 GCS 15, CALM, APPROPRIATE. LAB AT BEDSIDE. EKG COMPLETE.
--- NOTE | 2021-03-27 12:12 | NUR ---
WHEN THIS RN LIFTS PTS ARM, PT DROPS ARM BUT STOPS ARM RIGHT BEFORE HITTING BED. PT WAS HELPED TO BEDPAN. PT SEEN USING R LEG TO HELP BOOST HERSELF IN BED. NOTIFIED. CT CLEAR.
[2021-03-27 12:15] LABS: BASOPHILS % (AUTO) 0 % (0-1); EOSINOPHILS % (AUTO) 0 % (1-7); LYMPHOCYTES % (AUTO) 9 % (22-44); MEAN CORPUSCULAR HEMOGLOBIN 29.4 pg (27.0-34.8); MEAN CORPUSCULAR HGB CONC 32.9 g/dL (32.4-35.8); MEAN PLATELET VOLUME 7.1 fL (7.4-10.4); MONOCYTES % (AUTO) 5 % (2-9); NEUTROPHILS % (AUTO) 86 % (42-75); PLATELET COUNT 324 x10^3/uL (130-400); RED BLOOD COUNT 4.28 x10^6/uL (3.82-5.3); RED CELL DISTRIBUTION WIDTH 14.9 % (9.6-15.2)
[2021-03-27] MEDS ORDERED: ASPIRIN 325 MG TABLET PO ONE (12:30)
--- NOTE | 2021-03-27 12:44 | NUR ---
TASK RN: WITH REASSESSMENT REMAINS WITH 2/10 RIGHT ARM WEAKNESS/NUMBNESS MEDICATED PER EMAR FOR HEADACHE AT 10/10
[2021-03-27 12:45] LABS: INTERNATIONAL NORMALIZED RATIO 0.97 (0.93-1.1); PROTHROMBIN TIME 10.4 Seconds (9.6-11.5)
[2021-03-27] MEDS ORDERED: ACETAMINOPHEN 500 MG TABLET PO ONE (13:00)
[2021-03-27] MEDS ORDERED: ONDANSETRON ODT 4 MG PO ONE (13:00)
--- NOTE | 2021-03-27 13:38 | NUR ---
PT HELPED TO BEDPAN. NO NEEDS AT THIS TIME. PLAN MRI.
--- NOTE | 2021-03-27 13:58 | NUR ---
AMBULATED PT AROUND ED. WALKED VERY WELL. MILA IN ROOM FOR REEVAL. PT TO GO TO MRI, IF MRI CLEAR THEN TORI.
--- NOTE | 2021-03-27 14:10 | NUR ---
PT TO MRI.
[2021-03-27 15:08] VITALS: BP 127/80
== END 2021-03-27 15:38 | disposition home or self-care (01) ==
LOC: EDBD → MERGE 11:18 → ED 12:40
DX: G81.91 Hemiplegia, unspecified affecting right dominant side (principal); R53.1 Weakness; Z86.73 Personal history of transient ischemic attack (TIA), and cerebral infarction without residual deficits
CPT/HCPCS: 70450; 70496; 70498; 70551; 80047; 85025; 85610; 85730; 93005; 99285; Q0162; Q9967; 82962

== ENCOUNTER 2021-04-04 23:29 | Emergency (ER) | payer MEDICAID ==
[~2021-04-04] VITALS: Ht 162.6 cm; Wt 85.0 kg
[2021-04-04 23:32] VITALS: BP 137/83
--- NOTE | 2021-04-05 | NUR ---
pt evaluated by DON Faulkner. no legal hold, pt cleared to be dc'd home safely.
== END 2021-04-05 00:07 | disposition home or self-care (01) ==
LOC: ED 23:34
DX: F32.9 Major depressive disorder, single episode, unspecified (principal); F10.120 Alcohol abuse with intoxication, uncomplicated; Y90.9 Presence of alcohol in blood, level not specified; R53.1 Weakness; J44.9 Chronic obstructive pulmonary disease, unspecified; M19.90 Unspecified osteoarthritis, unspecified site; E11.9 Type 2 diabetes mellitus without complications
CPT/HCPCS: 99283

== ENCOUNTER 2021-04-07 01:53 | Emergency (ER) | payer MEDICAID ==
[~2021-04-07] VITALS: Ht 162.6 cm; Wt 81.8 kg
[2021-04-07 03:38] VITALS: BP 133/86
[2021-04-07 03:58] LABS: BASOPHILS % (AUTO) 1 % (0-1); EOSINOPHILS % (AUTO) 2 % (1-7); LYMPHOCYTES % (AUTO) 27 % (22-44); MEAN CORPUSCULAR HEMOGLOBIN 30.4 pg (27.0-34.8); MEAN CORPUSCULAR HGB CONC 34.4 g/dL (32.4-35.8); MEAN PLATELET VOLUME 6.8 fL (7.4-10.4); MONOCYTES % (AUTO) 7 % (2-9); NEUTROPHILS % (AUTO) 64 % (42-75); PLATELET COUNT 265 x10^3/uL (130-400); RED BLOOD COUNT 4.11 x10^6/uL (3.82-5.3); RED CELL DISTRIBUTION WIDTH 15.9 % (9.6-15.2)
[2021-04-07 04:05] LABS: ALBUMIN 3.3 g/dL (3.4-5.0); ANION GAP 9 mmol/L (5-15); CHLORIDE 110 mmol/L (98-107)
[2021-04-07 04:10] LABS: ALANINE AMINOTRANSFERASE 41 U/L (12-78); ALKALINE PHOSPHATASE 64 U/L (45-117); BILIRUBIN,TOTAL 0.2 mg/dL (0.2-1.0); CREATININE 0.61 mg/dL (0.55-1.02); TOTAL PROTEIN 6.5 g/dL (6.4-8.2)
--- NOTE | 2021-04-07 04:31 | NUR ---
PATIENT AMBULATED WITHOUT ASSISTANCE, VSS, ALERT AND ORIENTED TIMES 4. TAXI VOUCHER FILLED OUT FOR PATIENT TO GET BACK TO HER HOME
== END 2021-04-07 05:19 | disposition home or self-care (01) ==
LOC: ED 02:00
DX: F10.120 Alcohol abuse with intoxication, uncomplicated (principal); Z72.9 Problem related to lifestyle, unspecified; E11.9 Type 2 diabetes mellitus without complications; J44.9 Chronic obstructive pulmonary disease, unspecified; Y90.0 Blood alcohol level of less than 20 mg/100 ml
CPT/HCPCS: 36415; 80053; 80320; 85025; 99283; G0480